=== PATIENT | female | born 1980 | race Caucasian/White ===

== ENCOUNTER 2016-12-26 11:33 | Emergency (ER) | payer BC, OTHER ==
[~2016-12-26] VITALS: Ht 170.2 cm; Wt 76.3 kg
[~2016-12-26 11:33] MED LIST: BUPR-83 PO; KLN5X PO; LAMO200T38 PO
[2016-12-26 11:37] VITALS: TEMP 36.7; Ht 170.2 cm; Wt 76.3 kg
[2016-12-26] MEDS ORDERED: ONDANSETRON INJ 2 MG/ML 2 ML VIAL IV STA (12:49)
[2016-12-26] MEDS ORDERED: SODIUM CHLORIDE 0.9% 1000ML 1,000 ML IV STA (12:49)
[2016-12-26] MEDS ORDERED: MoRPHine SULFATE 4 MG/ML 1 ML CARP\\VIAL IV STA (12:49)
[2016-12-26 13:17] LABS: BASO % 0.2 %; BASO ABS # 0.01 K/uL (0-0.2); COMPLETE YES; EOS % 0.5 %; HEMATOCRIT 42.9 % (37-47); LYMPH % 25.7 %; LYMPH ABS # 1.43 K/uL (1.2-3.4); MEAN CELL VOLUME 93.1 fL (80-100); MEAN CORPUSCULAR HGB CONC 33.3 g/dl (32-36); MEAN PLATELET VOLUME 10.4 fL (7.4-10.4); MONO % 5.2 %; NEUT % 68.4 %; PLATELET COUNT 208 K/uL (130-400); RED BLOOD COUNT 4.61 M/uL (4.2-5.4); WHITE BLOOD COUNT 5.57 K/uL (4.8-10.8)
[2016-12-26 13:21] LABS: URINE APPEARANCE CLEAR (CLEAR); URINE BILIRUBIN NEG (NEG); URINE COLOR YELLOW; URINE NITRITE NEG (NEG); URINE SPECIFIC GRAVITY 1.011 (1.000-1.030); UROBILINOGEN NEG (NEG)
[2016-12-26 13:29] LABS: MANUAL MICROSCOPIC REQUIRED? NO; REVIEW REQ? NO
[2016-12-26 13:36] LABS: ALT/SGPT 18 U/L (12-78); BLOOD UREA NITROGEN 12 mg/dl (7-18); BUN/CREATININE RATIO 12.9 (10-20); CARBON DIOXIDE 26 mmol/L (21-32); CHLORIDE 106 mmol/L (98-107); CREATININE 0.96 mg/dl (0.60-1.20); GLUCOSE 81 mg/dl (70-99); POTASSIUM 4.1 mmol/L (3.5-5.1); SODIUM 140 mmol/L (136-145)
[2016-12-26 13:39] LABS: ALKALINE PHOSPHATASE 55 U/L (45-117); AST/SGOT 13 U/L (15-37)
[2016-12-26 13:49] LABS: PREG INTERNAL NEGATIVE QC NEG CLEAR BACKGROUND; PREG INTERNAL POSITIVE QC POS CONTROL LINE
[2016-12-26 13:54] LABS: CALCIUM 8.9 mg/dl (8.5-10.1)
[2016-12-26] MEDS ORDERED: SULF1TAB92 PO (14:42)
--- NOTE | 2016-12-26 14:46 | DIAGNOSTIC IMAGING REPORT ---
ABDOMEN AND PELVIS CT WITHOUT CONTRAST CT DOSE: 813.72 mGy.cm HISTORY: Flank pain EVALUATE FLANK PAIN/HEMATURIA TECHNIQUE: Multiaxial CT images of the abdomen and pelvis were performed without the use of intravenous and oral contrast according to the standard department stone protocol. COMPARISON STUDY: None. FINDINGS: Lung bases are clear. Liver spleen and pancreas are unremarkable. Right kidney is negative for hydronephrosis. Left kidney shows several nonobstructing mid and lower pole calcifications. These measure up to and include 3.5 mm. No evidence for an obstructing urinary tract calculus. Bladder is midline. There are no contained calcifications. There is considerable increase in fecal load throughout the colon consistent with fecal stasis. IMPRESSION: 1. Several nonobstructing left renal calcifications. 2. No evidence for an obstructing urinary tract calculus. 3. Considerable increase in fecal load throughout the colon consistent with fecal stasis. Electronically signed by: Remigio Penn M.D. 12/26/2016 2:45 PM Dictated Date/Time: 12/26/2016 2:39 PM
[2016-12-26] MEDS ORDERED: PHEN-876 PO (15:20)
[2016-12-26 15:33] VITALS: BP 138/71; PULSE 71; O2SAT 95
--- NOTE | 2016-12-27 12:31 | EMERGENCY ROOM VISIT NOTE ---
ED Visit Note First contact with patient: 12:37 Chief Complaint: Kidney pain and increased urinary frequency. History of Present Illness: Ms. Dominguez is a 36-year-old white female who ambulates into the ED complaining of left flank pain, increased urinary frequency and urinary burning. Historically patient reports a history of many urinary tract infections and kidney stones; her last kidney stone approximate 6 months ago required surgical intervention for extraction. Additionally she reports approximately 8 days ago she was seen at an urgent care center and was diagnosed with urinary tract infection for urinary burning and increased urinary frequency. She was prescribed Bactrim and has been taking her medications as prescribed. Patient goes on to report that over the last 7 days she has been having left flank pain. Her pain is radiating around the abdomen and into the left lower quadrant/pelvis; historically she reported in October she had a full got logical examination that was reported as normal. The pain has been constant but waxes and wanes in intensity. She describes her pain as a sharp discomfort. She currently rates her discomfort 7/10 but does report it has been as high as 10/ 10 and is low as 4/10. She has not identified any aggravating or alleviating factors related to this pain. She has been taken antibiotics as prescribed but no pain medications. Associated with her pain she reports she has been having chills but has had no paulino fevers, she has been nauseated and dry heaving, she has had a decreased appetite, continues to have increased urinary frequency and today for the first time she reports she's been having urinary burning, she also reports she has sensations of incomplete voiding. Additionally patient reports she has a history of migraine headaches and that her migraine headaches are increasing in frequency. She has not followed up with a new PCP in the area but reports her previous PCP did not have her on any medications for her headaches. These are her normal headaches and not the worst headache of her life. She denies any neurological symptoms. She has been using [id number] ibuprofen mostly and has had moderate relief of her discomfort. She denies sweats, skin eruptions, skin color changes, lightheadedness, dizziness, or respiratory tract symptoms, cough, wheezing, shortness of breath, chest pain, palpitations, upper abdominal pain, diarrhea, constipation, rectal bleeding, black/tarry stools, vaginal bleeding, vaginal discharge. Review of Systems: As noted above in history of present illness. All body systems were reviewed and found to be negative as noted above. Past Medical History: As previously noted, bronchitis, bowel obstruction, status post tonsillectomy, adenoidectomy, removal of left kidney cyst, D&C and wisdom teeth extraction. Current Medications: Bactrim, Wellbutrin, clonazepam, Lamictal. Allergies to Medications: Ceftin, Cipro, amoxicillin, doxycycline, Percocet, Imitrex, Elavil, fentanyl. Social History: Patient is currently employed; she feels safe in her home environment; she denies tobacco and alcohol use area Physical Examination: Vital Signs: Date Time Temp Pulse Resp B/P (MAP) Pulse Ox O2 Delivery O2 Flow Rate FiO2 12/26/16 15:33 71 18 138/71 95 12/26/16 13:11 77 14 129/76 100 Room Air 12/26/16 11:37 36.7 86 16 123/80 99 Room Air GENERAL: 36-year-old female in mild to moderate distress due to pain, nontoxic- appearing, afebrile and hemodynamically stable. NEUROLOGICAL: Awake, alert and oriented to person, place and time. Answering questions appropriately and following commands. Normal gait. Good hand eye coordination. No focal motor sensory deficits. Cranial nerves II through XII grossly intact. Good short-term and long-term recall. SKIN: Warm, dry and pink. No soft tissue eruptions or trauma noted. HEENT: Atraumatic and normocephalic. PERRLA. Sclera white and conjunctiva pink. No drainage from naris. Oral cavity moist and pink. Pharynx is nonerythematous or edematous. Speech normal. No lymphadenopathy. Trachea midline. No jugular venous distention. BACK: No tenderness over the bony spine. Mild left-sided CVA tenderness. THORAX: Lungs sounds are clear to auscultation and equal bilaterally with symmetrical chest wall. No wheezing, rales or rhonchi. No crepitus, tenderness , subcutaneous air or deformities noted. HEART: Regular rate and rhythm. No gallops, rubs or murmurs are appreciated. ABDOMEN: Flat and soft with mild tenderness in the left lower quadrant and pelvis area. Positive bowel sounds in all quadrants. No guarding, rigidity or organomegaly. EXTREMITIES: Moves all extremities well on command and with purpose. All distal neurovascular statuses are intact and equal bilaterally. No calf tenderness or cords. ED Course: Patient is assessed as noted above. Patient's medication list was reviewed. Laboratory Testing: Test 12/26/16 11:45 12/26/16 13:08 Range/Units Urine Color YELLOW Urine Appearance CLEAR CLEAR Urine pH 6.0 4.5-7.5 Urine Specific [place] 1.011 1.000-1.030 Urine Protein NEG NEG Urine Glucose (UA) NEG NEG Urine Ketones NEG NEG Urine Occult Blood NEG NEG Urine Nitrite NEG NEG Urine Bilirubin NEG NEG Urine Urobilinogen NEG NEG Urine Leukocyte Esterase NEG NEG White Blood Count 5.57 4.8-10.8 K/uL Red Blood Count 4.61 4.2-5.4 M/uL Hemoglobin 14.3 12.0-16.0 g/dL Hematocrit 42.9 37-47 % Mean Corpuscular Volume 93.1 80-100 fL Mean Corpuscular Hemoglobin 31.0 25-34 pg Mean Corpuscular Hemoglobin Concent 33.3 32-36 g/dl Platelet Count 208 130-400 K/uL Mean Platelet Volume 10.4 7.4-10.4 fL Neutrophils (%) (Auto) 68.4 % Lymphocytes (%) (Auto) 25.7 % Monocytes (%) (Auto) 5.2 % Eosinophils (%) (Auto) 0.5 % Basophils (%) (Auto) 0.2 % Neutrophils # (Auto) 3.81 1.4-6.5 K/uL Lymphocytes # (Auto) 1.43 1.2-3.4 K/uL Monocytes # (Auto) 0.29 0.11-0.59 K/uL Eosinophils # (Auto) 0.03 0-0.5 K/uL Basophils # (Auto) 0.01 0-0.2 K/uL RDW Standard Deviation 40.8 36.4-46.3 fL RDW Coefficient of Variation 12.0 11.5-14.5 % Immature Granulocyte % (Auto) 0.0 % Immature Granulocyte # (Auto) 0.00 0.00-0.02 K/uL Sodium Level 140 136-145 mmol/L Potassium Level 4.1 3.5-5.1 mmol/L Chloride Level 106 98-107 mmol/L Carbon Dioxide Level 26 21-32 mmol/L Anion Gap 8.0 3-11 mmol/L Blood Urea Nitrogen 12 7-18 mg/dl Creatinine 0.96 0.60-1.20 mg/dl Est Creatinine Clear Calc Drug Dose 86.3 ml/min Estimated GFR () 88.2 Estimated GFR (Non- 76.1 BUN/Creatinine Ratio 12.9 10-20 Random Glucose 81 70-99 mg/dl Calcium Level 8.9 8.5-10.1 mg/dl Total Bilirubin 0.3 0.2-1 mg/dl Direct Bilirubin < 0.1 0-0.2 mg/dl Aspartate Amino Transf (AST/SGOT) 13 15-37 U/L Alanine Aminotransferase (ALT/SGPT) 18 12-78 U/L Alkaline Phosphatase 55 45-117 U/L Total Protein 7.3 6.4-8.2 gm/dl Albumin 3.9 3.4-5.0 gm/dl Lipase 243 73-393 U/L Human Chorionic Gonadotropin, Qual NEG NEG Noncontrast Abdominal/Pelvic CT: Was reviewed by myself and read by the radiologist and shows liver bases are clear, liver, spleen and pancreas are unremarkable, right kidney is negative for Noa gross is, left kidney shows several nonobstructing mid and lower pole calcifications. No evidence of a struck in ureter calculus, bladder midline, no calcifications within the bladder , increased fecal load throughout the colon consistent with fecal stasis. Patient was hydrated with normal saline and received 4 mg of morphine IV for pain and 4 mg of Zofran IV for nausea. Patient was reassessed multiple times during her stay in the emergency department. Patient's case was reviewed with Dr. Wilson; we agreed on diagnostic approach , treatment, disposition and plan. Patient was educated about today's findings and instructed on her treatment plan ; she verbalizes understanding and agreement with this plan. Clinical Impression: Left flank pain. Urinary symptoms. Increased fecal load. Decision-Making: She'll my differential diagnosis I considered musculoskeletal strain, kidney stone, pyelonephritis, hydronephrosis, pancreatitis and other causes. Disposition: Patient discharged home in stable condition; prior to departure she was reassessed and subjectively reported she was feeling better. She reported a slight decrease in pain and resolution of nausea. Plan: Patient was encouraged to alternate ibuprofen and acetaminophen every 3 hours or use once every 6 hours as needed for pain. Patient was prescribed Pyridium 200 mg 3 times a day for 2 days for urinary symptoms. Patient was encouraged use of counter Colace 2 times a day and MiraLAX 1 time a day. Patient was encouraged to stay well-hydrated with increased clear fluids and to increase her diet with fruits, vegetables and fiber. Patient was encouraged to follow-up with Dr. Noa Potts of urology and Dr. Kelby Cheng of gastroenterology. Patient was encouraged return the ED for worsening/uncontrolled pains, fevers, vomiting, bloody urine, bloody stools, worsening headaches or any abnormal neurological symptoms.
== END 2016-12-26 15:45 | disposition home or self-care (01) ==
LOC: C.EDB 11:34 → C.EDC 15:45
DX: R10.9 Unspecified abdominal pain (principal); R30.0 Dysuria; R35.0 Frequency of micturition; K56.41 Fecal impaction; Z79.899 Other long term (current) drug therapy

== ENCOUNTER 2017-04-23 13:50 | Emergency (ER) | payer BC ==
[~2017-04-23] VITALS: Ht 170.2 cm; Wt 78.1 kg
[~2017-04-23 13:50] MED LIST changes: +SULF1TAB92 PO
[2017-04-23 14:02] VITALS: TEMP 37; Ht 170.2 cm; Wt 78.1 kg
[2017-04-23] MEDS ORDERED: ONDANSETRON INJ 2 MG/ML 2 ML VIAL IV STA (14:32)
[2017-04-23] MEDS ORDERED: SODIUM CHLORIDE 0.9% 1000ML 1,000 ML IV STA (14:32)
[2017-04-23] MEDS ORDERED: ACETAMINOPHEN IV 100 ML IV STA (14:32)
[2017-04-23] MEDS ORDERED: BUPR-79 PO (14:47)
[2017-04-23] MEDS ORDERED: MISCCAP80 PO (14:47)
[2017-04-23] MEDS ORDERED: CRAN1TAB9 PO (14:47)
[2017-04-23] MEDS ORDERED: CLON1TAB3 PO (14:49)
[2017-04-23 15:03] LABS: BASO % 0.4 %; BASO ABS # 0.02 K/uL (0-0.2); COMPLETE YES; HEMATOCRIT 40.6 % (37-47); LYMPH % 33.8 %; LYMPH ABS # 1.73 K/uL (1.2-3.4); MEAN CELL VOLUME 95.1 fL (80-100); MEAN CORPUSCULAR HEMOGLOBIN 31.9 pg (25-34); MEAN CORPUSCULAR HGB CONC 33.5 g/dl (32-36); NEUT % 57.8 %; PLATELET COUNT 205 K/uL (130-400); RED BLOOD COUNT 4.27 M/uL (4.2-5.4); WHITE BLOOD COUNT 5.12 K/uL (4.8-10.8)
[2017-04-23 15:06] LABS: URINE APPEARANCE CLOUDY (CLEAR); URINE BILIRUBIN NEG (NEG); URINE COLOR YELLOW; URINE EPITHELIAL CELL AUTO >30 /lpf (0-5); URINE NITRITE NEG (NEG); UROBILINOGEN NEG (NEG); ZZUR CULT IF INDIC CLEAN CATCH YES
--- NOTE | 2017-04-23 15:09 | EMERGENCY ROOM VISIT NOTE ---
History First contact with patient: 14:16 Chief Complaint: CONSTIPATION Stated Complaint: SEVERE PAIN, CONSTIPATION, NAUSEA Nursing Triage Summary: Patient states "I have severe abdominal pain x 1 week. I can't go in the bathroom x 2 days. I tried enemas but I still can't go. I am nauseated." History of Present Illness The patient is a 36 year old female who presents to the Emergency Room with complaints of constipation and abdominal bloating for the past week. Patient reports a history of chronic constipation, she usually manages this with diet, MiraLAX, and the occasional enema. She states that she tried an enema yesterday , however this was unsuccessful. She does admit that she is supposed to take the Miralax every day, but she has not been taking it for a while, because she feels that it does not help and takes too long to work. She states that she has been having some intermittent nausea but has still been eating normally and not vomiting. She states the abdominal bloating and pain have been getting worse and she has the sensation that she needs to move her bowels, but when she tries she is unable to go. She denies fever/chills, chest pain, shortness of breath, rectal bleeding, urinary symptoms. Review of Systems A complete 10 point review of systems was reviewed with the patient with pertinent positives and negatives as per history of present illness. All else were negative. Past Medical/Surgical History Medical Problems: (1) HTN (hypertension) (2) Hypokalemia (3) Psychiatric illness Social History Smoking Status: Current Every Day Smoker Marital Status: Occupation Status: employed Current/Historical Medications Scheduled Bupropion (Wellbutrin Sr), 300 MG PO DAILY Clonazepam (Klonopin), 1 MG PO BID Cranberry (Vaccinium Macrocarp (Cranberry), 2 CAP PO DAILY Lamotrigine (Lamictal), 200 MG PO BID Probiotic Product (Probiotic), 1 CAP PO DAILY Sulfa/Trimethoprim (Bactrim Ds 800MG/160MG), 1 TAB PO BID Allergies Review in chart Physical Exam Vital Signs Date Time Temp Pulse Resp B/P (MAP) Pulse Ox O2 Delivery O2 Flow Rate FiO2 04/23/17 19:25 75 18 104/81 99 04/23/17 18:08 73 15 100/59 100 Room Air 04/23/17 15:52 75 98/70 100 Room Air 04/23/17 15:17 63 14 98/70 100 Room Air 04/23/17 15:11 78 04/23/17 14:02 37.0 83 18 126/79 100 Room Air Physical Exam CONSTITUTIONAL: No acute distress. Well appearing and well nourished. Alert and oriented X 4 with normal affect. HEENT: Normocephalic, atraumatic. Pupils equal, round and reactive to light, EOMI. TMs normal. Pharynx normal. NECK: Supple, full active range of motion without discomfort. RESPIRATORY: Clear to auscultation bilaterally with no wheezing, crackles, rhonchi or stridor. Equal expansion bilaterally. CARDIOVASCULAR: Regular rate and rhythm with no murmurs, rubs or gallops. Normal peripheral perfusion. No edema. GASTROINTESTINAL: Mildly tender throughout, no rebound tenderness, no guarding. The abdomen is soft and nondistended. Active bowel sounds in all 4 quadrants. No CVA tenderness. MUSCULOSKELETAL: Full range of motion of all joints without discomfort. INTEGUMENTARY: No rash or other significant dermatologic conditions noted. NEUROLOGIC: Cranial nerves II-XII grossly intact. No focal neurologic deficits noted. Medical Decision & Procedures ER Provider Diagnostic Interpretation: PA CHEST RADIOGRAPH AND UPRIGHT AND SUPINE AP RADIOGRAPHS OF THE ABDOMEN CLINICAL HISTORY: eval fecal burden, SBO, free air COMPARISON STUDY: Chest radiograph October 29, [address] of the abdomen and pelvis 12/26/2016. FINDINGS: Lung volumes are normal. Lungs are clear. No pneumothorax or pleural effusion is present. Cardiac size is normal. Mediastinal contours are normal. There is no free air. Pelvic calcifications likely reflect phleboliths. There are several bilateral renal calculi. There is a large amount of stool within the colon. There is no evidence for a bowel obstruction. IMPRESSION: 1. No free air or evidence of bowel obstruction. 2. Large amount of stool within the colon. 3. Bilateral nephrolithiasis. 4. No acute cardiopulmonary findings. Laboratory Results 04/23/17 14:50 Red Blood Count 4.27, Mean Corpuscular Volume 95.1, Mean Corpuscular Hemoglobin 31.9, Mean Corpuscular Hemoglobin Concent 33.5, Mean Platelet Volume 10.0, Neutrophils (%) (Auto) 57.8, Lymphocytes (%) (Auto) 33.8, Monocytes (%) (Auto) 7.0, Eosinophils (%) (Auto) 1.0, Basophils (%) (Auto) 0.4, Neutrophils # (Auto) 2.96, Lymphocytes # (Auto) 1.73, Monocytes # (Auto) 0.36, Eosinophils # (Auto) 0.05, Basophils # (Auto) 0.02 04/23/17 14:50 Test 04/23/17 14:45 04/23/17 14:50 Urine Color YELLOW Urine Appearance CLOUDY (CLEAR) Urine pH 6.0 (4.5-7.5) Urine Specific [place] 1.010 (1.000-1.030) Urine Protein NEG (NEG) Urine Glucose (UA) NEG (NEG) Urine Ketones NEG (NEG) Urine Occult Blood NEG (NEG) Urine Nitrite NEG (NEG) Urine Bilirubin NEG (NEG) Urine Urobilinogen NEG (NEG) Urine Leukocyte Esterase MODERATE (NEG) Urine WBC (Auto) 10-30 /hpf (0-5) Urine RBC (Auto) 0-4 /hpf (0-4) Urine Hyaline Casts (Auto) 0 /lpf (0-5) Urine Epithelial Cells (Auto) >30 /lpf (0-5) Urine Bacteria (Auto) 1+ (NEG) Urine Test NEG (NEG) White Blood Count 5.12 K/uL (4.8-10.8) Red Blood Count 4.27 M/uL (4.2-5.4) Hemoglobin 13.6 g/dL (12.0-16.0) Hematocrit 40.6 % (37-47) Mean Corpuscular Volume 95.1 fL (80-100) Mean Corpuscular Hemoglobin 31.9 pg (25-34) Mean Corpuscular Hemoglobin Concent 33.5 g/dl (32-36) Platelet Count 205 K/uL (130-400) Mean Platelet Volume 10.0 fL (7.4-10.4) Neutrophils (%) (Auto) 57.8 % Lymphocytes (%) (Auto) 33.8 % Monocytes (%) (Auto) 7.0 % Eosinophils (%) (Auto) 1.0 % Basophils (%) (Auto) 0.4 % Neutrophils # (Auto) 2.96 K/uL (1.4-6.5) Lymphocytes # (Auto) 1.73 K/uL (1.2-3.4) Monocytes # (Auto) 0.36 K/uL (0.11-0.59) Eosinophils # (Auto) 0.05 K/uL (0-0.5) Basophils # (Auto) 0.02 K/uL (0-0.2) RDW Standard Deviation 42.4 fL (36.4-46.3) RDW Coefficient of Variation 12.4 % (11.5-14.5) Immature Granulocyte % (Auto) 0.0 % Immature Granulocyte # (Auto) 0.00 K/uL (0.00-0.02) Anion Gap 7.0 mmol/L (3-11) Est Creatinine Clear Calc Drug Dose 108.8 ml/min Estimated GFR () 115.1 Estimated GFR (Non- 99.3 BUN/Creatinine Ratio 14.7 (10-20) Calcium Level 8.9 mg/dl (8.5-10.1) Total Bilirubin 0.3 mg/dl (0.2-1) Direct Bilirubin < 0.1 mg/dl (0-0.2) Aspartate Amino Transf (AST/SGOT) 11 U/L (15-37) Alanine Aminotransferase (ALT/SGPT) 15 U/L (12-78) Alkaline Phosphatase 58 U/L (45-117) Total Protein 7.0 gm/dl (6.4-8.2) Albumin 3.8 gm/dl (3.4-5.0) Lipase 263 U/L (73-393) Medications Administered Medications (Trade) Dose Ordered Sig/Lamar Route Start Time Stop Time Status Last Admin Dose Admin Sodium Chloride 1,000 ml @ 999 mls/hr Q1H1M STAT IV 04/23/17 14:32 04/23/17 15:32 DC 04/23/17 14:51 999 MLS/HR Ondansetron HCl (Zofran Inj) 4 mg NOW STAT IV 04/23/17 14:32 04/23/17 14:36 DC 04/23/17 14:51 4 MG Acetaminophen 100 ml @ 400 mls/hr NOW STAT IV 04/23/17 14:32 04/23/17 14:46 DC 04/23/17 15:07 400 MLS/HR Sodium Biphosphate/ Sodium Phosphate (Fleet Enema) 132 ml NOW STAT NH 04/23/17 17:04 04/23/17 17:14 DC 04/23/17 17:39 132 ML Medical Decision CC: Patient presenting with complaint of constipation and abdominal pain/ bloating Interpretation of Labs: No leukocytosis, no anemia, no significant joint abnormalities, normal renal function, normal liver enzymes and lipase. UA consistent with UTI. Differential Diagnosis: Includes, but not limited to constipation, obstipation, small bowel obstruction, bowel perforation, among others. Medication Reconciliation: I attest that I have personally reviewed the patient' s current medication list. Vital signs review: I reviewed the patient's vital signs and interpret them as follows: T: Afebrile; BP: Normotensive; HR: Within normal limits; RR: Within normal limits; Pulse Ox: Within normal limits on room air. Blood pressure screening: The patient was found to have normal blood pressure on screening and does not require follow-up for repeat blood pressure check. Summary: Patient was evaluated at bedside, history of physical exam performed. Patient is alert and oriented, in no acute distress resting comfortably in the stretcher. She complains of diffuse discomfort of the abdomen, no significant tenderness or guarding, active bowel sounds in all 4 quadrants. Orders were placed at bedside for labs, UA, IV fluids for hydration, acute abdominal series to evaluate for constipation versus obstruction. Patient discussed with Dr. Rios, who agrees with my assessment and plan. Labs reviewed as above, no acute abnormalities. UA shows UTI, culture pending. Acute abdominal series shows a large amount of stool in the colon with no free air or signs of obstruction. Patient was offered an enema in the ED, she agrees to this and this was given. She did have a bowel movement following the enema and states that her symptoms are improved. Patient updated on all results and plan for discharge. She was specifically instructed on a bowel regimen with MiraLAX to continue managing her constipation. She was also given referral for a trade show manager to follow up. She was instructed on return precautions should her symptoms worsen, she verbalized understanding. She was discharged home in stable condition and ambulatory. Impression Primary Impression: Constipation Additional Impression: UTI (urinary tract infection) Departure Information Dispostion Home / Self-Care Condition GOOD Prescriptions Sulfa/Trimethoprim (Bactrim Ds 800MG/160MG) Tab 1 TAB PO BID for 3 Days, #6 TAB Prov: Breanna Raya CRNP 04/23/17 Referrals Cee Gonzalez D.O. (PCP) Caryn Adam, DO Patient Instructions ED Constipation, ED UTI Cystitis Female, My [facility] Additional Instructions You have been treated in the Emergency Department your Abdominal Pain. Laboratory results and imaging studies have ruled out any emergent causes for your abdominal pain which would warrant admission or surgery. You have been diagnosed today with constipation and a urinary tract infection ( UTI). You have been prescribed Bactrim to be taken twice a day for 3 days. This is an antibiotic. All antibiotics have the potential to cause diarrhea. Stop this medication and contact a medical provider if you were to develop any significant adverse side effects including: wheezing, shortness of breath, passing out, vomiting, or a diffuse rash. Always take antibiotics as directed and COMPLETE the ENTIRE course regardless of the improvement of your symptoms. For constipation: - Take Miralax one cap full 2-3 times a day until you are moving your bowels every day with a thick applesauce consistency. After that, back off to 1 capful daily to maintain normal bowel movements. It may take several days for this to work, keep taking the medicine. - Drink plenty of water to stay well hydrated. - Follow up with a trade show manager for ongoing management of your chronic constipation. Call for an appointment. As with any trip to the Emergency Department, you should follow-up with your Primary Care Provider in the next few days. Return to the emergency department for worsening symptoms, including severe worsening abdominal pain, persistent nausea or vomiting, fever/chills, blood in your stool or urine, or any other concerns. Work Instructions Return To Work: 1 day Problem Qualifiers Primary Impression: Constipation Constipation type: unspecified constipation type Qualified Codes: K59.00 - Constipation, unspecified Additional Impression: UTI (urinary tract infection) Urinary tract infection type: acute cystitis Hematuria presence: without hematuria Qualified Codes: N30.00 - Acute cystitis without hematuria
[2017-04-23 15:10] LABS: MANUAL MICROSCOPIC REQUIRED? NO; REVIEW REQ? NO
[2017-04-23 15:23] LABS: ALT/SGPT 15 U/L (12-78); BLOOD UREA NITROGEN 11 mg/dl (7-18); BUN/CREATININE RATIO 14.7 (10-20); CALCIUM 8.9 mg/dl (8.5-10.1); CARBON DIOXIDE 29 mmol/L (21-32); CHLORIDE 105 mmol/L (98-107); CREATININE 0.77 mg/dl (0.60-1.20); GLUCOSE 79 mg/dl (70-99); POTASSIUM 3.6 mmol/L (3.5-5.1); SODIUM 141 mmol/L (136-145)
[2017-04-23 15:26] LABS: ALKALINE PHOSPHATASE 58 U/L (45-117); AST/SGOT 11 U/L (15-37)
--- NOTE | 2017-04-23 15:51 | DIAGNOSTIC IMAGING REPORT ---
PA CHEST RADIOGRAPH AND UPRIGHT AND SUPINE AP RADIOGRAPHS OF THE ABDOMEN CLINICAL HISTORY: eval fecal burden, SBO, free air COMPARISON STUDY: Chest radiograph October 29, [address] of the abdomen and pelvis 12/26/2016. FINDINGS: Lung volumes are normal. Lungs are clear. No pneumothorax or pleural effusion is present. Cardiac size is normal. Mediastinal contours are normal. There is no free air. Pelvic calcifications likely reflect phleboliths. There are several bilateral renal calculi. There is a large amount of stool within the colon. There is no evidence for a bowel obstruction. IMPRESSION: 1. No free air or evidence of bowel obstruction. 2. Large amount of stool within the colon. 3. Bilateral nephrolithiasis. 4. No acute cardiopulmonary findings. Electronically signed by: Marck More M.D. 04/23/2017 3:50 PM Dictated Date/Time: 04/23/2017 3:48 PM
[2017-04-23] MEDS ORDERED: SOD PHOSPHATE/SOD BIPHOSPHATE ENEMA 132 ML BTL PR STA (17:04)
[2017-04-23] MEDS ORDERED: SULF800T23 PO (18:13)
[2017-04-23 19:25] VITALS: BP 104/81; PULSE 75; O2SAT 99
== END 2017-04-23 19:27 | disposition home or self-care (01) ==
LOC: C.EDB 13:51 → C.EDC 19:27
DX: K59.00 Constipation, unspecified (principal); N39.0 Urinary tract infection, site not specified; I10 Essential (primary) hypertension; F17.200 Nicotine dependence, unspecified, uncomplicated; Z79.899 Other long term (current) drug therapy

== ENCOUNTER 2017-04-26 19:42 | Emergency (ER) | payer BC ==
[~2017-04-26] VITALS: Ht 170.2 cm; Wt 78.1 kg
[~2017-04-26 19:42] MED LIST changes: +BUPR-79 PO; -BUPR-83 PO; +CLON1TAB3 PO; +CRAN1TAB9 PO; -KLN5X PO; +MISCCAP80 PO; -SULF1TAB92 PO; +SULF800T23 PO
[2017-04-26 19:48] VITALS: TEMP 37.1; Ht 170.2 cm; Wt 78.1 kg
[2017-04-26] MEDS ORDERED: SODIUM CHLORIDE 0.9% 1000ML 1,000 ML IV STA (20:29)
[2017-04-26] MEDS ORDERED: ONDANSETRON INJ 2 MG/ML 2 ML VIAL IV STA (20:29)
[2017-04-26 20:48] LABS: BASO % 0.1 %; BASO ABS # 0.01 K/uL (0-0.2); COMPLETE YES; EOS % 0.7 %; HEMATOCRIT 42.5 % (37-47); IG% 0.1 %; LYMPH % 33.8 %; LYMPH ABS # 2.26 K/uL (1.2-3.4); MEAN CELL VOLUME 94.4 fL (80-100); MEAN CORPUSCULAR HEMOGLOBIN 32.4 pg (25-34); MEAN CORPUSCULAR HGB CONC 34.4 g/dl (32-36); MEAN PLATELET VOLUME 9.9 fL (7.4-10.4); MONO % 7.2 %; NEUT % 58.1 %; PLATELET COUNT 220 K/uL (130-400); WHITE BLOOD COUNT 6.68 K/uL (4.8-10.8)
[2017-04-26 21:05] LABS: BUN/CREATININE RATIO 13.2 (10-20); CALCIUM 9.5 mg/dl (8.5-10.1); CREATININE 0.92 mg/dl (0.60-1.20); POTASSIUM 3.7 mmol/L (3.5-5.1)
[2017-04-26 21:08] LABS: URINE APPEARANCE CLEAR (CLEAR); URINE BILIRUBIN NEG (NEG); URINE COLOR YELLOW; URINE EPITHELIAL CELL AUTO >30 /lpf (0-5); URINE NITRITE NEG (NEG); URINE SPECIFIC GRAVITY 1.017 (1.000-1.030); UROBILINOGEN NEG (NEG)
[2017-04-26 21:08] LABS: ALB/GLOB RATIO 1.2 (0.9-2)
[2017-04-26 21:09] LABS: MANUAL MICROSCOPIC REQUIRED? NO; REVIEW REQ? NO
--- NOTE | 2017-04-26 21:44 | DIAGNOSTIC IMAGING REPORT ---
CT SCAN OF THE ABDOMEN AND PELVIS WITH IV CONTRAST CLINICAL HISTORY: Generalized abdominal pain. COMPARISON STUDY: Abdominal CT dated 12/26/2016. TECHNIQUE: Following the IV administration of 115 cc of Optiray 320, CT scan of the abdomen and pelvis is performed from the lung bases to the proximal femora. Images are reviewed in the axial, sagittal, and coronal planes. IV contrast was administered without complication. A dose lowering technique was utilized adhering to the principles of ALARA. CT DOSE: 438.70 mGy.cm FINDINGS: Lung bases: The heart is normal in size and without pericardial effusion. The lung bases are clear. Liver: The contrast-enhanced liver is normal in size, contour, and attenuation. There is no intrahepatic biliary ductal dilatation. The hepatic veins and portal veins are patent. Gallbladder: Unremarkable. Spleen: Normal in size and attenuation. Pancreas: Unremarkable. Adrenal glands: Unremarkable. Kidneys: The contrast enhanced kidneys are normal in size and without hydronephrosis. The kidneys enhance symmetrically. Cortical scarring is noted in the upper pole of the left kidney. Subcentimeter cortical hypodensities in both kidneys likely represent cysts but are too small for definitive characterization. There are least 4 nonobstructing left renal calculi measuring up to 4 mm. Abdominal vasculature: The abdominal aorta is normal in course and caliber. Bowel: There is moderate to severe constipation. No bowel obstruction is identified. The appendix is not identified and reported surgically absent. Peritoneum: There is no intraperitoneal free air or abdominal ascites. There is a small fat-containing umbilical hernia. Lymphadenopathy: None. Pelvic viscera: The bladder, uterus, and adnexa are normal as visualized. There is a small volume of free fluid in the cul-de-sac. Ovarian follicles are noted bilaterally. An involuting follicle is seen in the right ovary. Skeletal structures: No lytic or blastic lesions are seen. There are bilateral pars defects at L5 without anterolisthesis at L5-S1. Disc space narrowing is seen at L4-L5 and L5-S1. IMPRESSION: 1. There are no acute infectious or inflammatory findings in the abdomen or pelvis. 2. There is a small volume of free fluid in the cul-de-sac, likely within physiologic limits. 3. Moderate to severe constipation. No bowel obstruction is seen. 4. Nonobstructing left renal calculi. 5. Additional findings as above. Electronically signed by: Kristian Dunbar M.D. 04/26/2017 9:43 PM Dictated Date/Time: 04/26/2017 9:38 PM
[2017-04-26] MEDS ORDERED: LACTULOSE SYRUP 20 GM/30 ML UDC PO STA (21:59)
--- NOTE | 2017-04-26 22:53 | EMERGENCY ROOM VISIT NOTE ---
History First contact with patient: 20:04 Chief Complaint: ABDOMINAL PAIN Stated Complaint: UTI,CONSTIPATION,STOMACH PAIN Nursing Triage Summary: Pt. reports that she was seen here on Monday and diagnosed with a UTI and constipation. States she does not feel any better so she called her PCP, but couldn't get an appt. and went to [facility]. She was told there that she still has a UTI and was sent here for further testing. Pt. states she has not had a bowel movement in over a week despite taking miralax and drinking tea. Pt. states "I'm dying. This is worse than labor. I know, because I have two kids." History of Present Illness Patient is a 36-year-old white female who returns to the emergency department for continued abdominal pain and constipation. She was seen and evaluated here 3 days ago for the same complaint. She has a history of chronic constipation. She is not presently followed by gastroenterology, states that she recently made an appointment and is scheduled to be seen on . She states that her constipation is typically managed by MiraLAX, but she had not been taking that regularly. She was seen and evaluated here 3 days ago. She had laboratory studies and an acute abdominal series. Urine was concerning for infection she was placed on 3 days of Bactrim. Urine culture ultimately was negative. She received a fleets enema, which did not produce a significant bowel movement. Patient continues to complain of abdominal bloating and pain. She has not been able to move her bowels. She does report she has the urge to move her bowels, she sits on the toilet, nothing happens. She has been taking 2 -3 capsules of MiraLAX daily, with fruit juice and herbal tea. She continues to note reports pain primarily on the left side of her abdomen, but it is diffuse across the entire abdomen. She feels very bloated and distended. She is nauseous but has not vomited. She does report a remote history of a bowel obstruction. She had a colonoscopy about 10 years ago. She was seen at the [facility] just prior to coming to the emergency department. A urinalysis at that time still showed "a bunch of white cells." The practitioner there was worried "about my kidneys." She also notes that she is urinating frequently, denies dysuria. She rates her abdominal pain an 8/10. Review of Systems Review of systems as per HPI. All other systems reviewed were negative. 10 systems reviewed. Past Medical/Surgical History Medical Problems: (1) Bipolar disorder (2) Constipation (3) HTN (hypertension) (4) Hypokalemia (5) Kidney stone (6) Left flank pain (7) Psychiatric illness (8) UTI (urinary tract infection) (9) Vertigo Surgical Problems: (1) History of appendectomy (2) History of kidney surgery (3) History of wisdom tooth extraction Electronic medical records are reviewed and summarized as above/below. See Problem List. Social History Smoking Status: Current Some Day Smoker Marital Status: Housing Status: lives with family Occupation Status: employed Current/Historical Medications Scheduled Bupropion (Wellbutrin Sr), 300 MG PO DAILY Clonazepam (Klonopin), 1 MG PO BID Cranberry (Vaccinium Macrocarp (Cranberry), 2 CAP PO DAILY Lamotrigine (Lamictal), 200 MG PO BID Probiotic Product (Probiotic), 1 CAP PO DAILY Sulfa/Trimethoprim (Bactrim Ds 800MG/160MG), 1 TAB PO BID Physical Exam Vital Signs Date Time Temp Pulse Resp B/P (MAP) Pulse Ox O2 Delivery O2 Flow Rate FiO2 04/26/17 21:40 78 15 110/65 97 Room Air 04/26/17 20:30 70 18 130/90 100 Room Air 04/26/17 20:28 69 04/26/17 20:22 76 25 133/85 100 Room Air 04/26/17 19:48 37.1 85 18 123/84 99 Room Air Physical Exam CONSTITUTIONAL: Patient is a well-appearing 36-year-old white female who is awake and alert and in moderate distress due to her stated complaint. EYES: Pupils equal, round, reactive to light and accommodation. EOMs intact without nystagmus. Sclera are anicteric. ENT: Tympanic membranes intact, with normal landmarks. External canals are clear. Oral and nasopharynx are clear. Mucous membranes are moist, no lesions , tongue and gums appear normal. CARDIOVASCULAR: Regular rate and rhythm, with normal S1 and S2, no murmur or gallop or rub is heard. No carotid bruits auscultated. No JVD. Peripheral pulses easily palpable. RESPIRATORY: Breath sounds equal and clear to auscultation without wheezes, rales, or rhonchi heard. Full and equal chest expansion without accessory muscle use or retractions. ABDOMEN: Bowel sounds are present. Well-healed surgical scars are noted. Abdomen is soft, nondistended, tympanic to percussion throughout. She is moderately tender to palpation in the left upper and left lower quadrants, without guarding, rebound or rigidity. RECTAL EXAM: No masses or fecal impaction noted, stool is brown and Hemoccult negative. INTEGUMENTARY: No lesions or rash, normal skin turgor. LYMPH: No lymphadenopathy. Medical Decision & Procedures ER Provider Diagnostic Interpretation: CT SCAN OF THE ABDOMEN AND PELVIS WITH IV CONTRAST CLINICAL HISTORY: Generalized abdominal pain. COMPARISON STUDY: Abdominal CT dated 12/26/2016. TECHNIQUE: Following the IV administration of 115 cc of Optiray 320, CT scan of the abdomen and pelvis is performed from the lung bases to the proximal femora. Images are reviewed in the axial, sagittal, and coronal planes. IV contrast was administered without complication. A dose lowering technique was utilized adhering to the principles of ALARA. CT DOSE: 438.70 mGy.cm FINDINGS: Lung bases: The heart is normal in size and without pericardial effusion. The lung bases are clear. Liver: The contrast-enhanced liver is normal in size, contour, and attenuation. There is no intrahepatic biliary ductal dilatation. The hepatic veins and portal veins are patent. Gallbladder: Unremarkable. Spleen: Normal in size and attenuation. Pancreas: Unremarkable. Adrenal glands: Unremarkable. Kidneys: The contrast enhanced kidneys are normal in size and without hydronephrosis. The kidneys enhance symmetrically. Cortical scarring is noted in the upper pole of the left kidney. Subcentimeter cortical hypodensities in both kidneys likely represent cysts but are too small for definitive characterization. There are least 4 nonobstructing left renal calculi measuring up to 4 mm. Abdominal vasculature: The abdominal aorta is normal in course and caliber. Bowel: There is moderate to severe constipation. No bowel obstruction is identified. The appendix is not identified and reported surgically absent. Peritoneum: There is no intraperitoneal free air or abdominal ascites. There is a small fat-containing umbilical hernia. Lymphadenopathy: None. Pelvic viscera: The bladder, uterus, and adnexa are normal as visualized. There is a small volume of free fluid in the cul-de-sac. Ovarian follicles are noted bilaterally. An involuting follicle is seen in the right ovary. Skeletal structures: No lytic or blastic lesions are seen. There are bilateral pars defects at L5 without anterolisthesis at L5-S1. Disc space narrowing is seen at L4-L5 and L5-S1. IMPRESSION: 1. There are no acute infectious or inflammatory findings in the abdomen or pelvis. 2. There is a small volume of free fluid in the cul-de-sac, likely within physiologic limits. 3. Moderate to severe constipation. No bowel obstruction is seen. 4. Nonobstructing left renal calculi. Laboratory Results 04/26/17 20:30 Red Blood Count 4.50, Mean Corpuscular Volume 94.4, Mean Corpuscular Hemoglobin 32.4, Mean Corpuscular Hemoglobin Concent 34.4, Mean Platelet Volume 9.9, Neutrophils (%) (Auto) 58.1, Lymphocytes (%) (Auto) 33.8, Monocytes (%) (Auto) 7.2, Eosinophils (%) (Auto) 0.7, Basophils (%) (Auto) 0.1, Neutrophils # (Auto) 3.87, Lymphocytes # (Auto) 2.26, Monocytes # (Auto) 0.48, Eosinophils # (Auto) 0.05, Basophils # (Auto) 0.01 04/26/17 20:30 Test 04/26/17 20:30 04/26/17 20:44 White Blood Count 6.68 K/uL (4.8-10.8) Red Blood Count 4.50 M/uL (4.2-5.4) Hemoglobin 14.6 g/dL (12.0-16.0) Hematocrit 42.5 % (37-47) Mean Corpuscular Volume 94.4 fL (80-100) Mean Corpuscular Hemoglobin 32.4 pg (25-34) Mean Corpuscular Hemoglobin Concent 34.4 g/dl (32-36) Platelet Count 220 K/uL (130-400) Mean Platelet Volume 9.9 fL (7.4-10.4) Neutrophils (%) (Auto) 58.1 % Lymphocytes (%) (Auto) 33.8 % Monocytes (%) (Auto) 7.2 % Eosinophils (%) (Auto) 0.7 % Basophils (%) (Auto) 0.1 % Neutrophils # (Auto) 3.87 K/uL (1.4-6.5) Lymphocytes # (Auto) 2.26 K/uL (1.2-3.4) Monocytes # (Auto) 0.48 K/uL (0.11-0.59) Eosinophils # (Auto) 0.05 K/uL (0-0.5) Basophils # (Auto) 0.01 K/uL (0-0.2) RDW Standard Deviation 42.1 fL (36.4-46.3) RDW Coefficient of Variation 12.2 % (11.5-14.5) Immature Granulocyte % (Auto) 0.1 % Immature Granulocyte # (Auto) 0.01 K/uL (0.00-0.02) Anion Gap 6.0 mmol/L (3-11) Est Creatinine Clear Calc Drug Dose 91.0 ml/min Estimated GFR () 92.8 Estimated GFR (Non- 80.1 BUN/Creatinine Ratio 13.2 (10-20) Calcium Level 9.5 mg/dl (8.5-10.1) Total Bilirubin 0.4 mg/dl (0.2-1) Aspartate Amino Transf (AST/SGOT) 13 U/L (15-37) Alanine Aminotransferase (ALT/SGPT) 15 U/L (12-78) Alkaline Phosphatase 56 U/L (45-117) Total Protein 7.7 gm/dl (6.4-8.2) Albumin 4.2 gm/dl (3.4-5.0) Globulin 3.5 gm/dl (2.5-4.0) Albumin/Globulin Ratio 1.2 (0.9-2) Urine Color YELLOW Urine Appearance CLEAR (CLEAR) Urine pH 7.0 (4.5-7.5) Urine Specific [place] 1.017 (1.000-1.030) Urine Protein NEG (NEG) Urine Glucose (UA) NEG (NEG) Urine Ketones TRACE (NEG) Urine Occult Blood NEG (NEG) Urine Nitrite NEG (NEG) Urine Bilirubin NEG (NEG) Urine Urobilinogen NEG (NEG) Urine Leukocyte Esterase LARGE (NEG) Urine WBC (Auto) 5-10 /hpf (0-5) Urine RBC (Auto) 0-4 /hpf (0-4) Urine Hyaline Casts (Auto) 0 /lpf (0-5) Urine Epithelial Cells (Auto) >30 /lpf (0-5) Urine Bacteria (Auto) NEG (NEG) Medications Administered Medications (Trade) Dose Ordered Sig/Lamar Route Start Time Stop Time Status Last Admin Dose Admin Sodium Chloride 1,000 ml @ 250 mls/hr Q4H STAT IV 04/26/17 20:29 04/27/17 00:28 04/26/17 20:38 250 MLS/HR Ondansetron HCl (Zofran Inj) 4 mg NOW STAT IV 04/26/17 20:29 04/26/17 20:31 DC 04/26/17 20:38 4 MG Lactulose (Chronulac Syrup) 30 gm NOW STAT PO 04/26/17 21:59 04/26/17 22:00 DC 04/26/17 22:44 30 GM ED Course The patient was seen and assessed as above. Her old records, specifically her ED record from 3 days ago, was reviewed. Urine culture from that time was negative. Patient has completed 3 days of Bactrim therapy. IV lock was initiated. The patient was medicated with Zofran 4 mg IV for nausea. She was hydrated with normal saline solution. CBC with differential, CMP and urinalysis were ordered. Laboratory studies today are largely unremarkable, and unchanged from 2 days ago. White count is normal. She is not anemic. Electrolytes, renal functions and liver functions are all within normal limits. Urinalysis notes a contaminated sample with greater than 30 epithelial cells. She has a large amount of leuk esterase and only 5-10 WBCs, without any other indicators for infection. No nitrates, no blood, no bacteria. CT scan of the abdomen and pelvis with IV contrast was ordered given the patient 's persistent left-sided abdominal pain and constipation. Left-sided nephrolithiasis was noted. There is no evidence for hydronephrosis. There is moderate to severe constipation without evidence for bowel obstruction. No acute infectious or inflammatory findings were noted. The patient was made aware of the results of her ED workup. She would like to pursue more aggressive measures and was agreeable to an enema. She was given lactulose 30 g orally, and administered a soapsuds enema. Patient tolerated the enema well and had excellent results. She felt improved, and felt well enough to be discharged home on her bowel regimen. Differential diagnosis included constipation, fecal impaction, IBS, bowel obstruction, UTI, pyelonephritis, among others. Medical Decision See ED Course. Medication Reconcilliation Current Medication List: was personally reviewed by me Blood Pressure Screening Patient's blood pressure: Normal blood pressure Blood pressure disposition: Did not require urgent referral Impression Primary Impression: Constipation Departure Information Referrals Cee Gonzalez D.O. (PCP) Patient Instructions My [facility] Additional Instructions Continue MiraLAX as previously discussed. Acetaminophen(Tylenol) may be used for fever or pain. Use 1000mg every eight hours as needed. Avoid using more than 3000mg in a 24 hour period. This is available over the counter. Rest and drink plenty of fluids as tolerated. Slow sips of water or sports drinks are recommended instead of large amounts all at once. Continue current medications. Once your stomach is settled start with a clear liquid diet (jello, soup broth, etc.) and then advance as tolerated. You should avoid full, heavy meals for about 24 hrs from the time your symptoms resolved. Return to the ER immediately for worsening or persistent abdominal pain, vomiting, fevers, chest pains, difficulty breathing, black or bloody stools, worsening of your condition, or as needed. Follow up with your primary physician in 1-2 days for a recheck of your current condition. Follow-up with gastroenterology as you have scheduled.
[2017-04-26 23:34] VITALS: BP 118/76; PULSE 82; O2SAT 97
== END 2017-04-26 23:35 | disposition home or self-care (01) ==
LOC: C.EDB 19:44 → C.EDC 23:35
DX: K59.00 Constipation, unspecified (principal); R11.0 Nausea; R10.9 Unspecified abdominal pain; I10 Essential (primary) hypertension; F31.9 Bipolar disorder, unspecified; F17.200 Nicotine dependence, unspecified, uncomplicated; Z87.440 Personal history of urinary (tract) infections; Z87.442 Personal history of urinary calculi; Z98.890 Other specified postprocedural states; Z79.899 Other long term (current) drug therapy

== ENCOUNTER 2017-08-26 16:54 | Emergency (ER) | payer BC ==
[~2017-08-26] VITALS: Ht 170.2 cm; Wt 79.4 kg
[~2017-08-26 16:54] MED LIST changes: +AZITTAB PO; +LAMO200T35 PO; -LAMO200T38 PO; -SULF800T23 PO
[2017-08-26 17:01] VITALS: Ht 170.2 cm; Wt 79.4 kg
[2017-08-26] MEDS ORDERED: ACETAMINOPHEN 500 MG TAB PO STA (17:35)
[2017-08-26] MEDS ORDERED: ONDANSETRON INJ 2 MG/ML 2 ML VIAL IV STA (17:35)
[2017-08-26] MEDS ORDERED: KETOROLAC TROMETHAMINE 30 MG/ML VIAL IV STA (17:35)
[2017-08-26] MEDS ORDERED: VNTHFA/IN INH (17:40)
[2017-08-26] MEDS ORDERED: CYAN10005 PO (17:40)
[2017-08-26] MEDS ORDERED: BIOTCAP2 PO (17:40)
[2017-08-26] MEDS ORDERED: SODIUM CHLORIDE 0.9% 1000ML 1,000 ML IV ONE (17:45)
--- NOTE | 2017-08-26 17:50 | EMERGENCY ROOM VISIT NOTE ---
History First contact with patient: 17:21 Chief Complaint: SHORTNESS OF BREATH Stated Complaint: TROUBLE BREATHING,LIGHT HEADED,DIZZY History of Present Illness The patient is a 36 year old female who presents to the Emergency Room with complaints of flulike symptoms for approximately 10 days. The patient saw her primary care physician's office earlier this week. She was prescribed a Z-Sigifredo, albuterol and prednisone. She has been taking these medications with no relief. She thinks that the albuterol and steroids are making it worse. She describes a constant heaviness in her chest for the last several days. She also feels short of breath. Her temperature has been 99F. She has also been trying Tylenol and Motrin with no relief. She did not get a flu vaccine this year. Review of Systems 10 system review performed and negative unless noted in HPI or below Past Medical/Surgical History Medical Problems: (1) Bipolar disorder (2) Constipation (3) HTN (hypertension) (4) Hypokalemia (5) Kidney stone (6) Left flank pain (7) Psychiatric illness (8) UTI (urinary tract infection) (9) Vertigo Surgical Problems: (1) History of appendectomy (2) History of kidney surgery (3) History of wisdom tooth extraction Social History Smoking Status: Current Some Day Smoker Marital Status: Housing Status: lives with family Occupation Status: employed Current/Historical Medications Scheduled Albuterol Hfa (Ventolin Hfa), 2-4 PUFFS INH Q6H Azithromycin (Zithromax Z-Sigifredo), 1 PKT PO UD Biotin (Biotin 5000), 1 CAP PO DAILY Bupropion (Wellbutrin Sr), 300 MG PO DAILY Clonazepam (Klonopin), 1 MG PO BID Cyanocobalamin (Vitamin B-12), 1,000 MCG PO DAILY Lamotrigine (Lamictal), 200 MG PO BID Ondasetron Odt (Zofran Odt), 4 MG SL Q6H Probiotic Product (Probiotic), 1 CAP PO DAILY Physical Exam Vital Signs Date Time Temp Pulse Resp B/P (MAP) Pulse Ox O2 Delivery O2 Flow Rate FiO2 08/26/17 21:43 75 18 117/69 96 08/26/17 20:57 36.6 75 18 117/69 96 Room Air 08/26/17 18:45 76 08/26/17 18:39 85 16 125/72 99 Room Air 08/26/17 17:01 36.6 87 18 113/73 96 Room Air Physical Exam VITALS: Vitals are noted on the nurse's note and reviewed by myself. Vital signs stable. GENERAL: 36-year-old female, anxious in appearance, SKIN: The skin was without rashes, erythema, edema, or bruising. HEAD: Normocephalic atraumatic. EYES: Conjunctivae injected bilaterally. Extraocular movements intact. NOSE:. No sinus tenderness. MOUTH: Mucous membranes slightly dry. Tonsils are not enlarged. Pharynx without erythema or exudate. Uvula midline. Airway patent. Tongue does not deviate. NECK: Supple without nuchal rigidity. Lymphadenopathy noted posterior cervical chain bilaterally. Cervical spine is nontender. No JVD. HEART: Regular rate and rhythm without murmurs gallops or rubs. LUNGS: Clear to auscultation bilaterally without wheezes, rales or rhonchi. No accessory muscle use. ABDOMEN: Positive bowel sounds x 4.Soft, nontender, without organomegaly. No guarding or rebound tenderness. MUSCULOSKELETAL: No muscle atrophy, erythema, or edema noted. Strength 5/5 throughout. NEURO: Patient was alert and oriented to person place and time. Normal sensation to touch. No focal neurological deficits. Medical Decision & Procedures ER Provider Diagnostic Interpretation: CXR IMPRESSION: No acute cardiopulmonary findings. Electronically signed by: Marck More M.D. 08/26/2017 8:31 PM Dictated Date/Time: 08/26/2017 8:31 PM The status of this report is Signed. Draft = Not yet reviewed or approved by Radiologist. Signed = Reviewed and approved by Radiologist. <AttendingPhy></AttendingPhy> <FamilyPhy>Cee Gonzalez D.O.</FamilyPhy> < PrimaryPhy>Cee Gonzalez D.O.</PrimaryPhy> <UnitNumber>[id number]</ UnitNumber> <VisitNumber>[id number]</VisitNumber> <PatientName>ANETA CRISTOBALHEL Chris< /PatientName> <DateOfBirth>1980</DateOfBirth> <Location>[facility]</Location> < ServiceDate>08/26/17</ServiceDate> <MNE>ESINDI</MNE> <OrderingPhy>Shelly Wang PA-C</OrderingPhy> <OrderingPhyMNE>f rep ord dr rose</OrderingPhyMNE> < DictatingPhyMNE>f rep dict dr rose</DictatingPhyMNE> <CCListMNE>f rep ct mne</ CCListMNE> <AdmittingPhyMNE>f pt admit dr rose</AdmittingPhyMNE> <AttendingPhyMNE >f pt attend dr rose</AttendingPhyMNE> <ConsultingPhyMNE>f pt consult dr rose</ConsultingPhyMNE> <FamilyPhyMNE>f pt fam dr rose</FamilyPhyMNE> <OtherPhyMNE>f pt other dr rose</OtherPhyMNE> < PrimaryPhyMNE>f pt prim care dr rose</PrimaryPhyMNE> <ReferringPhyMNE>f pt referring dr rose</ReferringPhyMNE> Laboratory Results 08/26/17 17:50 Red Blood Count 4.40, Mean Corpuscular Volume 95.2, Mean Corpuscular Hemoglobin 32.3, Mean Corpuscular Hemoglobin Concent 33.9, Mean Platelet Volume 10.3, Neutrophils (%) (Auto) 82.7, Lymphocytes (%) (Auto) 12.3, Monocytes (%) (Auto) 4.6, Eosinophils (%) (Auto) 0.1, Basophils (%) (Auto) 0.1, Neutrophils # (Auto) 7.33, Lymphocytes # (Auto) 1.09, Monocytes # (Auto) 0.41, Eosinophils # (Auto) 0.01, Basophils # (Auto) 0.01 08/26/17 17:50 Test 08/26/17 17:50 08/26/17 18:20 White Blood Count 8.87 K/uL (4.8-10.8) Red Blood Count 4.40 M/uL (4.2-5.4) Hemoglobin 14.2 g/dL (12.0-16.0) Hematocrit 41.9 % (37-47) Mean Corpuscular Volume 95.2 fL (80-100) Mean Corpuscular Hemoglobin 32.3 pg (25-34) Mean Corpuscular Hemoglobin Concent 33.9 g/dl (32-36) Platelet Count 230 K/uL (130-400) Mean Platelet Volume 10.3 fL (7.4-10.4) Neutrophils (%) (Auto) 82.7 % Lymphocytes (%) (Auto) 12.3 % Monocytes (%) (Auto) 4.6 % Eosinophils (%) (Auto) 0.1 % Basophils (%) (Auto) 0.1 % Neutrophils # (Auto) 7.33 K/uL (1.4-6.5) Lymphocytes # (Auto) 1.09 K/uL (1.2-3.4) Monocytes # (Auto) 0.41 K/uL (0.11-0.59) Eosinophils # (Auto) 0.01 K/uL (0-0.5) Basophils # (Auto) 0.01 K/uL (0-0.2) RDW Standard Deviation 43.6 fL (36.4-46.3) RDW Coefficient of Variation 12.5 % (11.5-14.5) Immature Granulocyte % (Auto) 0.2 % Immature Granulocyte # (Auto) 0.02 K/uL (0.00-0.02) D-Dimer < 190 ug/L FEU (0-500) Anion Gap 7.0 mmol/L (3-11) Est Creatinine Clear Calc Drug Dose 111.0 ml/min Estimated GFR () 117.0 Estimated GFR (Non- 100.9 BUN/Creatinine Ratio 27.8 (10-20) Calcium Level 8.9 mg/dl (8.5-10.1) Total Bilirubin 0.3 mg/dl (0.2-1) Aspartate Amino Transf (AST/SGOT) 12 U/L (15-37) Alanine Aminotransferase (ALT/SGPT) 17 U/L (12-78) Alkaline Phosphatase 50 U/L (45-117) Troponin I < 0.015 ng/ml (0-0.045) Total Protein 7.2 gm/dl (6.4-8.2) Albumin 3.8 gm/dl (3.4-5.0) Globulin 3.4 gm/dl (2.5-4.0) Albumin/Globulin Ratio 1.1 (0.9-2) Thyroid Stimulating Hormone (TSH) 1.010 uIu/ml (0.300-4.500) Chemistry Specimen Hemolysis Influenza Type A (RT-PCR) Neg for Influ A (NEG) Influenza Type B (RT-PCR) Neg for Influ B (NEG) Urine Color YELLOW Urine Appearance CLOUDY (CLEAR) Urine pH 5.0 (4.5-7.5) Urine Specific [place] 1.040 (1.000-1.030) Urine Protein NEG (NEG) Urine Glucose (UA) NEG (NEG) Urine Ketones TRACE (NEG) Urine Occult Blood NEG (NEG) Urine Nitrite NEG (NEG) Urine Bilirubin NEG (NEG) Urine Urobilinogen NEG (NEG) Urine Leukocyte Esterase TRACE (NEG) Urine WBC (Auto) 5-10 /hpf (0-5) Urine RBC (Auto) 0-4 /hpf (0-4) Urine Hyaline Casts (Auto) 1-5 /lpf (0-5) Urine Epithelial Cells (Auto) >30 /lpf (0-5) Urine Bacteria (Auto) NEG (NEG) Urine Crystals CALCIUM OXALATE (NONE Urine Test NEG (NEG) Medications Administered Medications (Trade) Dose Ordered Sig/Lamar Route Start Time Stop Time Status Last Admin Dose Admin Sodium Chloride 1,000 ml @ 999 mls/hr Q1H1M ONCE IV 08/26/17 17:45 08/26/17 18:45 DC 08/26/17 18:46 999 MLS/HR Acetaminophen (Tylenol Tab) 1,000 mg NOW STAT PO 08/26/17 17:35 08/26/17 17:38 DC 08/26/17 18:45 1,000 MG Ketorolac Tromethamine (Toradol Inj) 30 mg NOW STAT IV 08/26/17 17:35 08/26/17 17:38 DC 18 18:45 30 MG Ondansetron HCl (Zofran Inj) 4 mg NOW STAT IV 08/26/17 17:35 08/26/17 17:38 DC 08/26/17 18:45 4 MG Ondansetron HCl (ZOFRAN ODT 4MG Home Pack) 1 homepack UD ONCE PO 08/26/17 21:00 08/26/17 21:01 DC 08/26/17 21:21 1 HOMEPACK Sodium Chloride 500 ml @ 999 mls/hr Q31M STAT IV 08/26/17 20:50 08/26/17 21:20 DC 08/26/17 20:56 999 MLS/HR ECG Per My Interpretation Indication: chest pain Rate (beats per minute): 80 Rhythm: normal sinus ED Course Patient was seen and examined Vital signs including blood pressure were reviewed medications list was verified with patient Labs were obtained, and a saline lock was established The patient was medicated with Toradol, Tylenol, Zofran and hydrated with 1 L of normal saline The patient was reevaluated and feeling better. We discussed her workup at length. She voiced understanding. The patient was given an additional 500 mL in normal saline. The case was discussed with my supervising physician who is in agreement with my plan She was given a home pack a Zofran She was comfortable being discharged home I reviewed discharge instructions the patient. They voiced understanding and had no further questions. Medical Decision Differential diagnosis: Bronchitis, pneumonia, influenza, other viral syndrome, pulmonary embolus, cardiac arrhythmia, coronary ischemia, pneumothorax This patient is a 36-year-old female that presents to the emergency room with flulike symptoms and chest pressure/shortness of breath. On exam, she was mildly acutely ill in appearance. Her workup reveals a negative influenza. Chest x-ray is negative for pneumonia. There is no leukocytosis. Her troponin is negative. EKG shows normal sinus rhythm with no signs of ischemia or infarction. I also checked a d-dimer, because the patient has a family history of DVT. This was also negative. A pulmonary embolus is highly unlikely. I believe she likely has a viral illness and was mildly dehydrated from nausea. She was volume resuscitated in the emergency department. She had good symptomatic relief with the medication received. She is now tolerating a diet. I believe she is stable to be discharged home. She will be given a short course of Zofran and continue to take Tylenol and Motrin as needed for pain or fever. I do believe some of the patient's symptoms are related to side effects from the steroids. She was instructed to stop the steroids as she does not have any significant wheezing on exam. She has been taking 50 mg for the last 3 days. I do not think that she needs a taper. The patient was comfortable with this plan. She will follow up closely with her primary care physician, and agrees to return for any worsening symptoms This chart was completed in part utilizing [employer] Voice Recognition software. Attempts were made to minimize the grammatical errors, random word insertions, pronoun errors and incomplete sentences. Any formal questions or concerns about the content, text or information contained within the body of this dictation should be directly addressed to the provider for clarification. Medication Reconcilliation Current Medication List: was personally reviewed by me Blood Pressure Screening Patient's blood pressure: Normal blood pressure Impression Primary Impression: Influenza-like symptoms Departure Information Dispostion Home / Self-Care Condition GOOD Prescriptions Ondasetron Odt (ZOFRAN ODT) 4 Mg Tab 4 MG SL Q6H for Nausea, #20 TAB Prov: Shelly Wang PA-C 08/26/17 Referrals Cee Gonzalez D.O. (PCP) Patient Instructions [facility] Additional Instructions You had been evaluated in the emergency department for flulike symptoms and chest pressure. X-rays were negative for pneumonia. An influenza swab was also negative. This is likely a viral illness. Please take Zofran 1 tab under the tongue every 6 hours as needed for nausea. Try to stay well hydrated and increase fluids over the next several days. Get plenty of rest. Ibuprofen 800 mg and/or Tylenol 1000 mg every 8 hours for pain and fever relief You may also alternate these medications for more effective pain relief: Ibuprofen --4 HRS--> Tylenol --4 HRS--> ibuprofen --4 HRS--> Tylenol .... Please follow-up with your primary care physician early next week for recheck. Please do not hesitate to return to the emergency department with any new, worsening or concerning symptoms It was a pleasure participating in your care tonight Work Instructions Return To Work: 2 days
[2017-08-26 18:18] LABS: BASO % 0.1 %; BASO ABS # 0.01 K/uL (0-0.2); EOS % 0.1 %; EOS ABS # 0.01 K/uL (0-0.5); HEMATOCRIT 41.9 % (37-47); HEMOGLOBIN 14.2 g/dL (12.0-16.0); IG# 0.02 K/uL (0.00-0.02); LYMPH % 12.3 %; LYMPH ABS # 1.09 K/uL (1.2-3.4); MEAN CELL VOLUME 95.2 fL (80-100); MEAN CORPUSCULAR HEMOGLOBIN 32.3 pg (25-34); MEAN CORPUSCULAR HGB CONC 33.9 g/dl (32-36); MEAN PLATELET VOLUME 10.3 fL (7.4-10.4); MONO % 4.6 %; MONO ABS # 0.41 K/uL (0.11-0.59); NEUT % 82.7 %; NEUT ABS # 7.33 K/uL (1.4-6.5); PLATELET COUNT 230 K/uL (130-400); RED CELL DISTRIBUTION WIDTH CV 12.5 % (11.5-14.5); RED CELL DISTRIBUTION WIDTH SD 43.6 fL (36.4-46.3); WHITE BLOOD COUNT 8.87 K/uL (4.8-10.8)
[2017-08-26 18:43] LABS: ALBUMIN 3.8 gm/dl (3.4-5.0); ALT/SGPT 17 U/L (12-78); BLOOD UREA NITROGEN 21 mg/dl (7-18); CALCIUM 8.9 mg/dl (8.5-10.1); CARBON DIOXIDE 27 mmol/L (21-32); CREATININE 0.76 mg/dl (0.60-1.20); GLUCOSE 112 mg/dl (70-99)
[2017-08-26 19:05] LABS: INFLUENZA A PCR Neg for Influ A (NEG); INFLUENZA B PCR Neg for Influ B (NEG)
[2017-08-26 19:23] LABS: POTASSIUM 4.4 mmol/L (3.5-5.1)
[2017-08-26 19:26] LABS: ALKALINE PHOSPHATASE 50 U/L (45-117); SODIUM 142 mmol/L (136-145); TOTAL PROTEIN 7.2 gm/dl (6.4-8.2)
[2017-08-26 19:27] LABS: AST/SGOT 12 U/L (15-37)
--- NOTE | 2017-08-26 20:32 | DIAGNOSTIC IMAGING REPORT ---
CHEST 2 VIEWS ROUTINE CLINICAL HISTORY: SOB CP cough COMPARISON STUDY: Chest radiograph April 23, 2017. FINDINGS: Lung volumes are normal. Lungs are clear. No pneumothorax or pleural effusion is noted. Cardiac size is normal. Mediastinal contours are normal. IMPRESSION: No acute cardiopulmonary findings. Electronically signed by: Marck More M.D. 08/26/2017 8:31 PM Dictated Date/Time: 08/26/2017 8:31 PM
[2017-08-26] MEDS ORDERED: SODIUM CHLORIDE 0.9% 500ML 500 ML IV STA (20:50)
[2017-08-26 20:57] VITALS: TEMP 36.6
[2017-08-26] MEDS ORDERED: ONDANSETRON HOME PACK 4MG OD TAB PO ONE (21:00)
[2017-08-26] MEDS ORDERED: ONDA4TAB10 SL (21:37)
[2017-08-26 21:43] VITALS: BP 117/69; PULSE 75; O2SAT 96
== END 2017-08-26 21:44 | disposition home or self-care (01) ==
LOC: C.EDB 16:55 → C.EDC 21:44
DX: R07.89 Other chest pain (principal); R06.02 Shortness of breath; I10 Essential (primary) hypertension; F31.9 Bipolar disorder, unspecified; F17.200 Nicotine dependence, unspecified, uncomplicated; Z87.442 Personal history of urinary calculi; Z87.440 Personal history of urinary (tract) infections; Z90.89 Acquired absence of other organs; Z98.818 Other dental procedure status; Z98.890 Other specified postprocedural states; Z82.49 Family history of ischemic heart disease and other diseases of the circulatory system; Z79.899 Other long term (current) drug therapy

== ENCOUNTER 2019-01-15 13:44 | Observation (INO) ==
[2019-01-15] MEDS ORDERED: SODIUM CHLORIDE 0.9% 1000ML 1,000 ML IV ONE (14:57)
[2019-01-15] MEDS ORDERED: ONDANSETRON INJ 2 MG/ML 2 ML VIAL IV STA (14:57)
[2019-01-15] MEDS: HYDROmorphone INJ 0.5 MG/0.5 ML SYR IV PRN ×4 (15:20→18:28)
[2019-01-15 15:25] LABS: Basophils # (auto) 0.01 K/uL (0-0.2); Basophils % (auto) 0.1 %; Eosinophils % (auto) 1.4 %; Hematocrit (blood only) 38.3 % (37-47); Hemoglobin 13.1 g/dL (12.0-16.0); Immature Granulocytes # (auto) 0.02 K/uL (0.00-0.02); Immature Granulocytes % (auto) 0.3 %; Lymphocytes # (auto) 2.23 K/uL (1.2-3.4); Mean Corpuscular Hgb Conc 34.2 g/dL (32-36); Mean Corpuscular Volume 94.6 fL (80-100); Mean Platelet Volume 10.1 fL (7.4-10.4); Monocytes # (auto) 0.45 K/uL (0.11-0.59); Monocytes % (auto) 6.3 %; Neutrophils # (auto) 4.39 K/uL (1.4-6.5); Neutrophils % (auto) 60.9 %; Platelet Count 224 K/uL (130-400); RDW Coefficient of Variation 12.8 % (11.5-14.5); RDW Standard Deviation 43.7 fL (36.4-46.3); Red Blood Count 4.05 M/uL (4.2-5.4)
[2019-01-15 15:41] LABS: Albumin Level 3.4 gm/dl (3.4-5.0); Appearance Urine Clear (Clear); BUN Creatinine Ratio 15.7 (10-20); Bacteria Urine Automated Negative (Negative); Bilirubin Urine Negative (Negative); Blood Urine 2+ (Negative); Calcium 9.5 mg/dl (8.5-10.1); Cast Urine Automated 0 /lpf (0-5); Color Urine Yellow; Creatinine Clr Calc Pharmacy 134.9 ml/min; Est GFR (African American) 129.2; Est GFR (Non-African American) 111.5; Glucose Urine UA Negative (Negative); Ketones Urine Negative (Negative); Leukocyte Esterase Urine 1+ (Negative); Nitrite Urine Negative (Negative); Potassium 3.8 mmol/L (3.5-5.1); Protein Urine Negative (Negative); Specific Gravity Urine 1.011 (1.000-1.030); Urobilinogen Urine Negative (Negative)
[2019-01-15 15:43] LABS: Bilirubin,Total 0.3 mg/dl (0.2-1); Globulin 3.5 gm/dl (2.5-4.0); Total Protein 6.9 gm/dl (6.4-8.2)
--- NOTE | 2019-01-15 16:56 | Ultrasound Report ---
PELVIC ULTRASOUND CLINICAL HISTORY: s/p D and E, fever COMPARISON STUDY: Pelvic ultrasound January 13, 2018. CT of the abdomen and pelvis October 28, 2018. TECHNIQUE: Transabdominal sonography of the pelvis was performed. Transvaginal imaging was deferred in this patient given recent procedure. FINDINGS: Uterus measures 9.5 x 5 x 7.4 cm. The endometrium is thickened, measuring 1.9 cm in thickne ss. Endometrial hypervascularity is noted, most evident within the uterine fundus. This is suboptimal ly assessed given the lack of transvaginal imaging. The ovaries were not visualized. No adnexal mass was identified. No free fluid was noted. IMPRESSION: 1. Thickened endometrium with hypervascularity, most evident within the fundus. Although suboptimally assessed given the lack of transvaginal imaging, the findings favor retained products of conception. Endometritis could appear similar. 2. Nonvisualization of the ovaries. No adnexal masses. No free fluid. Electronically signed by: Marck More M.D. 01/15/2019 4:55 PM
[2019-01-15] MEDS ORDERED: SILVER NITR/POTASSIUM NITRATE APPLICATOR ONE (18:59)
--- NOTE | 2019-01-15 19:13 | Anesthesiology Consultation ---
Date of Service January 15, 2019 The patient states that Dilaudid is the only IV narcotic that she tolerates. Assessment & Plan (1) Encounter for pre-operative examination: Chart Review Chart Review: Acceptable Risk for Surgery and Patient NOT seen in Pre Admission Testing Consults Requested none History Surgery Operation Date: 01/15/19 19:00 Proposed Procedures p Dilatation and Evacuation - Dorian Wallis MD Height/Weight Height: 5 ft 7 in Weight: 95.2 kg Allergies Allergy/AdvReac Type Severity Reaction Status Date / Time cefuroxime Allergy Intermediate HIVES Verified 01/15/19 15:35 Cipro Allergy Intermediate HIVES Unverified 01/13/18 11:19 ciprofloxacin Allergy Intermediate HIVES Verified 01/15/19 15:35 clavulanic acid Allergy Intermediate HIVES Verified 01/15/19 15:35 doxycycline Allergy Intermediate HIVES Verified 01/15/19 15:35 morphine Allergy Intermediate ITCHING Verified 01/15/19 15:35 fentanyl AdvReac Severe HALLUCINATE Verified 01/15/19 15:35 oxycodone AdvReac Severe HALLUCINATE Verified 01/15/19 15:35 amitriptyline AdvReac Intermediate "HEAD Verified 01/15/19 15:35 FEELS LIKE IT IS GOING TO BLOW UP" sumatriptan AdvReac Intermediate "HEAD Verified 01/15/19 15:35 FEELS LIKE IT IS GOING TO BLOW UP" codeine AdvReac Mild VOMIT Verified 01/11/19 05:59 Medications Home Medications Medication Instructions Recorded Confirmed Last Taken PNV cmb#95-ferrous fumarate-FA 1 tab PO DAILY 01/02/19 01/15/19 01/09/19 22:00 [] levothyroxine 50 mcg PO QAM 01/02/19 01/15/19 01/11/19 04:30 [id number]-[id number]-GB 4 drp OTB TID 01/02/19 01/15/19 01/10/19 22:00 ibuprofen 600 mg PO Q6H PRN 01/15/19 01/15/19 Unknown venlafaxine [Effexor XR] 37.5 mg PO DAILY 01/15/19 01/15/19 Unknown Active Medications Generic Name Dose Route Start Last Admin Trade Name Freq PRN Reason Stop Dose Admin Hydromorphone HCl 0.5 mg 01/15/19 14:57 01/15/19 18:28 Dilaudid IV 01/29/19 14:56 0.5 mg Q15M PRN Administration Pain NPO Date Last Intake of Fluids: 01/14/19 Time Last Intake of Fluids: 15:00 Date Last Intake of Solids: 01/15/19 Time Last Intake of Solids: 13:00 Past Medical History Medical History Anxiety Chronic constipation IBS (irritable bowel syndrome) Kidney stones Major depression DISORDER Missed Post traumatic stress disorder HX Redundant colon SIGMOID Past Family History Family History Family/Other Family hx of colon cancer Mother Family hx colonic polyps Other Family history non-contributory Past Surgical History Surgical History Cyst of left kidney REMOVED Family history of reaction to anesthesia MOTHER/BROTHER NAUSEA/VOMITTING H/O removal of cyst History of appendectomy History of colonoscopy 06/12/18= MAC SEDATION History of colposcopy History of cystoscopy STONE EXTRACTION History of dilatation and curettage History of esophagogastroduodenoscopy (EGD) History of laparoscopy 10/30/18 [facility]. MAC 3, ETT 7.0, DL x 1, atraumatic. Grade view II with anterior cricoid pressure. History of lithotripsy History of tooth extraction Hx of tonsillectomy Social History Smoking Status: Never smoker tobacco type: cigarettes Smoking cigarettes per day: ONLY SMOKES OCCASIONALLY "NOT DAILY" Hx Alcohol Use: Yes Alcohol type: beer alcohol intake frequency: a few times a month Hx Substance Use: Yes substance use type: marijuana Substance Use Type Other:: ADVISED Physical Exam Vital Signs Last Vital Signs Temp 36.7 C 01/15/19 18:41 Pulse 76 01/15/19 18:41 Resp 18 01/15/19 18:41 BP 105/76 01/15/19 18:41 Pulse Ox 98 01/15/19 18:41 Testing Laboratory Results 01/15/19 15:15 01/15/19 15:15 Urine Color Yellow 01/15/19 15:15 Urine Appearance Clear (Clear) 01/15/19 15:15 Urine pH 7.0 (4.5-7.5) 01/15/19 15:15 Ur Specific [place] 1.011 (1.000-1.030) 01/15/19 15:15 Urine Protein Negative (Negative) 01/15/19 15:15 Urine Glucose (UA) Negative (Negative) 01/15/19 15:15 Urine Ketones Negative (Negative) 01/15/19 15:15 Urine Nitrite Negative (Negative) 01/15/19 15:15 Ur Leukocyte Esterase 1+ (Negative) H 01/15/19 15:15 Urine WBC (Auto) 1-5 /hpf (0-5) 01/15/19 15:15 Urine RBC (Auto) 5-10 /hpf (0-4) H 01/15/19 15:15 U Hyaline Cast (Auto) 0 /lpf (0-5) 01/15/19 15:15 U Epithel Cells (Auto) 10-20 /lpf (0-5) H 01/15/19 15:15 Urine Bacteria (Auto) Negative (Negative) 01/15/19 15:15
[2019-01-15] MEDS ORDERED: ePHEDrine sulfate 50 MG/ML AMP IV PRN (19:16)
[2019-01-15] MEDS ORDERED: ONDANSETRON INJ 2 MG/ML 2 ML VIAL IV PRN ×2 (19:16→22:30)
[2019-01-15] MEDS ORDERED: PHENYLEPHRINE 100MCG/ML 5ML SYR IV PRN (19:16)
[2019-01-15] MEDS ORDERED: ATROPINE SULFATE 0.1 MG/ML 10ML SYR IV PRN (19:16)
[2019-01-15] MEDS ORDERED: HYDROmorphone INJ 2 MG/ML SYR/VIAL ONE (19:21)
[2019-01-15] MEDS ORDERED: MIDAZOLAM HCL 1 MG/ML 2ML VIAL ONE (19:21)
[2019-01-15] MEDS ORDERED: DEXAMETHASONE SOD INJ 4 MG/ML VIAL ONE (19:57)
[2019-01-15] MEDS ORDERED: PROPOFOL IV EMULSION 10 MG/ML 20 ML VIAL IV ONE (19:57)
[2019-01-15] MEDS ORDERED: LIDOCAINE HCL 2% 2 ML VIAL/AMP(20MG/ML) INFIL ONE (19:57)
[2019-01-15] MEDS ORDERED: ONDANSETRON INJ 2 MG/ML 2 ML VIAL ONE (19:57)
[2019-01-15] MEDS ORDERED: OXYTOCIN 10 UNITS/ML VIAL ONE (20:12)
[2019-01-15] MEDS ORDERED: KETOROLAC 30 MG/ML VIAL IV ONE (20:24)
[2019-01-15] MEDS ORDERED: KETOROLAC 30 MG/ML VIAL ONE (20:25)
--- NOTE | 2019-01-15 20:32 | History and Physical Report ---
DATE OF ADMISSION: 01/15/2019 REASON FOR ADMISSION: Vaginal bleeding and abdominal pain. HISTORY OF PRESENT ILLNESS: The patient is a 38-year-old female 3, para 0-2-1-2, who presents with vaginal bleeding and abdominal pain today. She is status post D and E done on 01/11/2019 for missed , done by myself. Products of conception were present on pathology. She states that she has been having abdominal pain and passage of quarter size clots. On exam today, her abdomen is soft. There is a little bit of tenderness, no rebound or guarding. Pelvic exam revealed minimal amounts of bleeding. The os is closed. No tissue noted. An ultrasound today shows a thickened endometrium on a transabdominal ultrasound. Uterus is 9.5 x 5 x 7.4 cm and the endometrial thickening is measuring 1.9 cm. REVIEW OF SYSTEMS: Negative. FAMILY HISTORY: Noncontributory. ALLERGIES: INCLUDE CEFUROXIME, CIPRO, CIPROFLOXACIN, CLAVULANIC ACID, DOXYCYCLINE, MORPHINE, FENTANYL, OXYCODONE, AMITRIPTYLINE, SUMATRIPTAN, AND CODEINE. MEDICATIONS: Ibuprofen. SOCIAL HISTORY: Past smoker, denies smoking presently. No alcohol or drug use. LABORATORIES: White blood cell count 7.2, hemoglobin 13.1, hematocrit 38.3. Chemistries within normal limits. ASSESSMENT: Probable retained products of conception, doubt endometritis. PLAN: D and E. The patient is given an option for medical management but refused.
[2019-01-15] MEDS ORDERED: HYDROmorphone INJ 1 MG/ML SYRINGE ONE (20:33)
[2019-01-15] MEDS: HYDROmorphone INJ 1 MG/ML SYRINGE IV PRN ×2 (20:34→20:39)
--- NOTE | 2019-01-15 21:16 | Anesthesiology Progress Note ---
Date of Service January 15, 2019 Anesthesia Post Procedure Vital Signs Vital Signs: Temp Pulse Pulse Pulse Resp BP BP 01/15/19 21:10 79 12 117/66 01/15/19 21:00 36.5 C 70 20 108/67 01/15/19 20:50 65 11 L 118/70 01/15/19 20:40 63 12 109/73 01/15/19 20:30 73 13 114/88 01/15/19 20:24 36.2 C L 74 16 108/75 01/15/19 19:20 36.4 C L 92 H 16 127/67 01/15/19 18:41 36.7 C 76 18 105/76 01/15/19 17:50 66 18 115/70 01/15/19 16:10 64 18 100/64 01/15/19 13:49 36.7 C 76 16 127/74 Pulse Ox 01/15/19 21:10 98 01/15/19 21:00 99 01/15/19 20:50 97 01/15/19 20:40 98 01/15/19 20:30 98 01/15/19 20:24 93 01/15/19 19:20 96 01/15/19 18:41 98 01/15/19 17:50 98 01/15/19 16:10 98 01/15/19 13:49 97 Pain Intensity Abdomen: Pain Intensity: 4 Transfer of Care Handoff Completed per policy Notes Mental Status: alert / awake / arousable Patient Amnestic to Procedure: Yes Nausea / Vomiting: adequately controlled Pain: adequately controlled Airway Patency, RR, SpO2: stable & adequate BP & HR: stable & adequate Hydration State: stable & adequate Anesthetic Complications: no major complications apparent and Pt Satisfied with anesthetic care
[2019-01-15] MEDS ORDERED: ACETAMINOPHEN 1,000 MG/100 ML VIAL IV PRN (22:25)
[2019-01-15] MEDS ORDERED: KETOROLAC 30 MG/ML VIAL IV PRN (22:28)
--- NOTE | 2019-01-15 22:42 | Emergency Department Note ---
Entered by Parris Kelly acting as a scribe for Bob Crisostomo MD ED Provider Note CHIEF COMPLAINT: Vaginal bleeding. HISTORY OF PRESENT ILLNESS: The patient is a 38 year old female who presents to the Emergency Room with co mplaints of constant vaginal bleeding. Per the ED note, the patient had a DNE of a missed on January [address] Colon. She was diagnosed with a missed in the [facility] office. She was RH negative. The patient received Rhogam. Procedure with no complications was noted. The patient states that her abdominal pain has worsened since the surgery. She reports that the pain is located more i n her lower abdomen and at a 9/10. She states that she has been experiencing vaginal bleeding and clots. She reports that the clots are quarter size. She states that she has dizziness. The patient states that Ibuprofen did not alleviate her pain. She denies being on any blood thinners. She states that she has a history of IBS. Pt denies LOC, headache, fevers, chills, diaphoresis, visual changes, neck pain, chest pain, breathing difficulties, nausea, vomiting, back pain, melena, hematochezia, urinary symptoms, numbness, weakness, lymphadenopathy, rash, or other complaints. REVIEW OF SYSTEMS: See HPI for pertinent positives and negatives. A total of ten systems were reviewed and were otherwise negative. PMHx/PSHx: procedure and IBS SOCIAL HISTORY: Patient lives at home. PHYSICAL EXAM: GENERAL: Awake, alert, uncomfortable-appearing, in mild distress HENT: Normocephalic, atraumatic. Oropharynx unremarkable. EYES: PERRL. Normal conjunctiva. Sclera non-icteric. NECK: Inspection normal. Non-tender. Supple. No nuchal rigidity. FROM. No masses. RESPIRATORY: Clear to auscultation. No wheezes. No rales. Normal respiratory effort. CARDIAC: Normal rate. Normal rhythm. No murmurs. No rubs. Extremities warm and well perfused. Pulses equal. No JVD. GI: Soft, non-distended. Mild diffuse but moderate bilateral lower abdominal tenderness to palpation. No rebound or guarding. No masses. RECTAL: Deferred. MUSCULOSKELETAL: Atraumatic. Chest examination reveals no tenderness. There is no CVA tenderness to palpation. No joint edema. LOWER EXTREMITIES: Calves are equal size bilaterally and non-tender. No edema. No discoloration. NEURO: Normal sensorium. No sensory or motor deficits noted. SKIN: No rash or jaundice noted. EMERGENCY DEPARTMENT COURSE: 1456: Past medical records reviewed. The patient was evaluated in room A4B, and a complete history and physical examination were performed. 1508: I discussed the patient's case with the patient's [facility] OT, Dr. Colon- [facility], he agreed with everything and wanted a call after the ultrasound was conducted on the patient. 170: I reevaluated and updated the patient on her results. 170: I updated Dr. Colon on the patient's ultrasounds results, he will come and evaluate the patient. 182: Dr. Colon will further evaluate the patient. MEDICAL DECISION MAKING: Prior records/ancillary studies reviewed. The patient had recent surgery for a missed . Triage Nursing notes reviewed and agree them. The patient's history was concerning for vaginal bleeding and abdominal pain. Differential diagnosis: Etiologies such as retained products, endometritis, dysfunction uterine bleeding, bleeding dyscrasia, trauma, infection, as well as others were entertained. Physical examination: As above. ER treatment provided: Monitoring IV Dilaudid x2 IV Zofran On reassessment the patient felt better. Diagnostic interpretation by me: The labs revealed CBC, coagulation studies, and chemistries were unremarkableImaging studies: Consultation: A consultation was placed with the brilliandeer lopper physician, Dr. Syed Wallis. The case was discussed and diagnostics were reviewed. Patient was evaluated in the emergency department for further management. IMPRESSION: Retained product of conception, vaginal bleeding, lower abdominal pain, and pelvic pain. PLAN: Admitted. The scribe's documentation has been prepared under my direction and personally reviewed by me in its entirety. I confirm that the note above accurately reflects all work, treatment, procedures, and medical decision making performed by me. Impression & Plan Retained products of conception, Vaginal bleeding, Lower abdominal pain, Pelvic pain Past Med/Surg History Medical History Anxiety Chronic constipation IBS (irritable bowel syndrome) Kidney stones Major depression DISORDER Missed Post traumatic stress disorder HX Redundant colon SIGMOID Surgical History Cyst of left kidney REMOVED Family history of reaction to anesthesia MOTHER/BROTHER NAUSEA/VOMITTING H/O removal of cyst History of appendectomy History of colonoscopy 06/12/18= MAC SEDATION History of colposcopy History of cystoscopy STONE EXTRACTION History of dilatation and curettage History of esophagogastroduodenoscopy (EGD) History of laparoscopy 10/30/18 [facility]. MAC 3, ETT 7.0, DL x 1, atraumatic. Grade view II with anterior cricoid pressure. History of lithotripsy History of tooth extraction Hx of tonsillectomy Family History Family/Other Family hx of colon cancer Mother Family hx colonic polyps Other Family history non-contributory Social History Preferred Language: Israeli Communication Ability: Effective Beliefs That Will Affect Care: None Current Living Situation: Family Feels Safe at Home: Yes Smoking Status: Never smoker Tobacco Type: cigarettes Cigarettes Per Day: ONLY SMOKES OCCASIONALLY "NOT DAILY" Second Hand Exposure: No Hx Alcohol Use: Yes Alcohol type: beer Hx Substance Use: Yes substance use type: marijuana Substance Use Type Other:: ADVISED Results & Data Vital Signs Vital Signs - 24 hr 01/15/19 13:49 01/15/19 16:10 01/15/19 17:50 Temperature 36.7 C Temperature Source Oral Sepsis Recent Fever Within 48 Hours No Sepsis New/Unexplained Change in Mental Status No Sepsis Action Taken by Nursing No Action Required Pulse Rate 76 Pulse Rate [Apical] Pulse Rate [Right Finger] 64 66 Pulse Rhythm [Apical] Pulse Rhythm [Right Finger] Respiratory Rate 16 18 18 Respiratory Effort / Characteristics Respiratory Depth Respiratory Pattern Blood Pressure 127/74 Blood Pressure [Right Arm] 100/64 115/70 Blood Pressure Mean 91 Blood Pressure Mean [Right Arm] 76 85 Blood Pressure Position [Right Arm] Pulse Oximetry 97 98 98 Oxygen Delivery Method Oxygen Flow Rate 01/15/19 18:41 01/15/19 19:20 01/15/19 20:24 Temperature 36.7 C 36.4 C L 36.2 C L Temperature Source Oral Oral Temporal Artery Scan Sepsis Recent Fever Within 48 Hours Sepsis New/Unexplained Change in Mental Status Sepsis Action Taken by Nursing Pulse Rate Pulse Rate [Apical] 74 Pulse Rate [Right Finger] 76 92 H Pulse Rhythm [Apical] Regular Pulse Rhythm [Right Finger] Regular Respiratory Rate 18 16 16 Respiratory Effort / Characteristics Non-Labored Spontaneous Non-Labored Spontaneous Respiratory Depth Normal Normal Respiratory Pattern Regular Regular Blood Pressure Blood Pressure [Right Arm] 105/76 127/67 108/75 Blood Pressure Mean Blood Pressure Mean [Right Arm] 85 87 86 Blood Pressure Position [Right Arm] Sitting Semi-fowlers Pulse Oximetry 98 96 93 Oxygen Delivery Method Room Air Room Air Oxygen Flow Rate 01/15/19 20:30 Temperature Temperature Source Sepsis Recent Fever Within 48 Hours Sepsis New/Unexplained Change in Mental Status Sepsis Action Taken by Nursing Pulse Rate Pulse Rate [Apical] 73 Pulse Rate [Right Finger] Pulse Rhythm [Apical] Regular Pulse Rhythm [Right Finger] Respiratory Rate 13 Respiratory Effort / Characteristics Non-Labored Spontaneous Respiratory Depth Normal Respiratory Pattern Regular Blood Pressure Blood Pressure [Right Arm] 114/88 Blood Pressure Mean Blood Pressure Mean [Right Arm] 96 Blood Pressure Position [Right Arm] Semi-fowlers Pulse Oximetry 98 Oxygen Delivery Method Nasal Cannula Oxygen Flow Rate 2 Home Medications Current Medication List: was personally reviewed by me Laboratory Data Attestation: I reviewed the patient's lab results. Result diagrams: 01/15/19 15:15 01/15/19 15:15 Lab Results 01/15/19 01/15/19 01/15/19 Range/Units 15:15 15:15 15:15 WBC 7.20 (4.8-10.8) K/uL RBC 4.05 L (4.2-5.4) M/uL Hgb 13.1 (12.0-16.0) g/dL Hct 38.3 (37-47) % MCV 94.6 (80-100) fL MCH 32.3 (25-34) pg MCHC 34.2 (32-36) g/dL RDW Std Deviation 43.7 (36.4-46.3) fL RDW Coeff of Lauren 12.8 (11.5-14.5) % Plt Count 224 (130-400) K/uL MPV 10.1 (7.4-10.4) fL Immature Gran % (Auto) 0.3 % Neut % (Auto) 60.9 % Lymph % (Auto) 31.0 % [place] % (Auto) 6.3 % Eos % (Auto) 1.4 % Baso % (Auto) 0.1 % Immature Gran # (Auto) 0.02 (0.00-0.02) K/uL Neut # (Auto) 4.39 (1.4-6.5) K/uL Lymph # (Auto) 2.23 (1.2-3.4) K/uL [place] # (Auto) 0.45 (0.11-0.59) K/uL Eos # (Auto) 0.10 (0-0.5) K/uL Baso # (Auto) 0.01 (0-0.2) K/uL Sodium 141 (136-145) mmol/L Potassium 3.8 (3.5-5.1) mmol/L Chloride 105 (98-107) mmol/L Carbon Dioxide 30 (21-32) mmol/L Anion Gap 6.0 (3-11) BUN 11 (7-18) mg/dl Creatinine 0.67 (0.6-1.2) mg/dl Est Cr Clr Drug Dosing 134.9 ml/min Est GFR ( Amer) 129.2 Est GFR (Non-Af Amer) 111.5 BUN/Creatinine Ratio 15.7 (10-20) Glucose 82 (70-99) mg/dl Calcium 9.5 (8.5-10.1) mg/dl Total Bilirubin 0.3 (0.2-1) mg/dl AST 22 (15-37) U/L ALT 36 (12-78) U/L Alkaline Phosphatase 67 (45-117) U/L Total Protein 6.9 (6.4-8.2) gm/dl Albumin 3.4 (3.4-5.0) gm/dl Globulin 3.5 (2.5-4.0) gm/dl Albumin/Globulin Ratio 1.0 (0.9-2) Lipase 193 (73-393) U/L Urine Color Yellow Urine Appearance Clear (Clear) Urine pH 7.0 (4.5-7.5) Ur Specific [place] 1.011 (1.000-1.030) Urine Protein Negative (Negative) Urine Glucose (UA) Negative (Negative) Urine Ketones Negative (Negative) Urine Blood 2+ H (Negative) Urine Nitrite Negative (Negative) Urine Bilirubin Negative (Negative) Urine Urobilinogen Negative (Negative) Ur Leukocyte Esterase 1+ H (Negative) Urine WBC (Auto) 1-5 (0-5) /hpf Urine RBC (Auto) 5-10 H (0-4) /hpf U Hyaline Cast (Auto) 0 (0-5) /lpf U Epithel Cells (Auto) 10-20 H (0-5) /lpf Urine Bacteria (Auto) Negative (Negative) Administered Medications Hydromorphone HCl (Dilaudid) 0.5 mg IV Q15M PRN PRN Reason: Pain Stop: 01/29/19 14:56 Last Admin: 01/15/19 18:28 Dose: 0.5 mg Documented by: [id number] Admin: 01/15/19 17:43 Dose: 0.5 mg Documented by: [id number] Admin: 01/15/19 17:05 Dose: 0.5 mg Documented by: [id number] Admin: 01/15/19 15:20 Dose: 0.5 mg Documented by: [id number] Discontinued Medications Hydromorphone HCl (Dilaudid) 0.25 mg IV Q5M PRN PRN Reason: PACU Use Only-Pain Stop: 01/16/19 00:16 Last Admin: 01/15/19 20:39 Dose: 0.25 mg Documented by: [id number] Admin: 01/15/19 20:34 Dose: 0.25 mg Documented by: [id number] Sodium Chloride (Nss 1000ml) 1,000 mls @ 999 mls/hr IV .Q1H1M ONE Stop: 01/15/19 15:57 Last Infusion: 01/15/19 16:20 Dose: 0 mls/hr Documented by: [id number] Admin: 01/15/19 15:20 Dose: 999 mls/hr Documented by: [id number] Ketorolac Tromethamine (Toradol) 30 mg IV NOW ONE Stop: 01/15/19 20:25 Last Admin: 01/15/19 20:32 Dose: 30 mg Documented by: [id number] Ondansetron HCl (Zofran) 4 mg IV NOW STA Stop: 01/15/19 14:58 Last Admin: 01/15/19 15:20 Dose: 4 mg Documented by: [id number] Imaging Data Radiologist's Impression: Radiology results as stated below per my review and the radiologist's interpretation: PELVIC ULTRASOUND CLINICAL HISTORY: s/p D and E, fever COMPARISON STUDY: Pelvic ultrasound January 13, 2018. CT of the abdomen and pelvis October 28, 2018. TECHNIQUE: Transabdominal sonography of the pelvis was performed. Transvaginal imaging was deferred in this patient given recent procedure. FINDINGS: Uterus measures 9.5 x 5 x 7.4 cm. The endometrium is thickened, measuring 1.9 cm in thickness. Endometrial hypervascularity is noted, most evident within the uterine fundus. This is suboptimally assessed given the lack of transvaginal imaging. The ovaries were not visualized. No adnexal mass was identified. No free fluid was noted. IMPRESSION: 1. Thickened endometrium with hypervascularity, most evident within the fundus. Although suboptimally assessed given the lack of transvaginal imaging, the findings favor retained products of conception. Endometritis could appear similar. 2. Nonvisualization of the ovaries. No adnexal masses. No free fluid. Electronically signed by: Marck More M.D. 01/15/2019 4:55 PM Blood Pressure Blood Pressure Findings: Normal blood pressure Discharge Plan Visit Data *Final* Discharge Date/Time: 01/15/19 19:01 Chief Complaint: Vaginal Bleeding Stated Complaint: D&E ON 01/11,EXCESSIVE BLEEDING,CLOTS,PAIN ED Provider: Bob Crisostomo Discharge Problem: Retained products of conception, Vaginal bleeding, Lower abdominal pain, Pelvic pain Patient Disposition: Admitted As Inpatient Discharge Instructions Interventions: ED Discharge Assessment Last Done: 01/15/19 19:01 The scribe's documentation has been prepared under my direction and personally reviewed by me in its entirety. I confirm that the note above accurately reflect s all work, treatment, procedures, and medical decision making performed by me.
--- NOTE | 2019-01-16 01:16 | Operative Report ---
DATE OF OPERATION: 01/15/2019 PREOPERATIVE DIAGNOSIS: Retained products of conception. POSTOPERATIVE DIAGNOSIS: Retained products of conception. PROCEDURE: D and E under ultrasound guidance. SURGEON: Dorian Wallis MD PRESS TENDER SMOKE SIGNAL: None. ANESTHESIA: General. CLINICAL HISTORY: The patient is a 38-year-old female, para 0-2-1-2 who presents to the ER after having bleeding and abdominal pain for a day or so. She had undergone a D and E on 01/11/2019 for missed . She comes back today to the ER complaining of vaginal bleeding and pain. Ultrasound revealed possible presence of thickened endometrium with possible retained products. The patient was consented for D and E. She was given informed consent and a timeout was called prior to the start of the procedure. No antibiotics were given. DESCRIPTION OF PROCEDURE: Under satisfactory general anesthesia, the patient was prepped and draped in usual sterile fashion. A red rubber catheter was then used to empty the bladder of clear urine. Exam under anesthesia revealed the uterus to be approximately 8-week size. A weighted speculum was placed in the posterior vault of the vagina. The cervix was then dilated and sounded to approximately 8 cm. A #8 curved curette was then introduced and under ultrasound guidance products of conception were suctioned out. The ultrasound confirmed that the uterus was empty. No active bleeding was noted at the end of the procedure. A sharp endometrial curette was then used curetting out minimal amounts of tissue. Pitocin was started in the IV. No active bleeding was noted. All remaining instruments were then removed. The final sponge, needle, and instrument count were found to be correct. The patient was then placed upon a stretcher and she was taken to recovery room in stable condition. She will stay overnight due to not having a ride. I attest to the content of the Intraoperative Record and any orders documented therein. Any exception s are noted below.
[2019-01-16] MEDS: IBUPROFEN 600 MG TAB PO PRN ×2 (01:34→08:48)
--- NOTE | 2019-01-16 08:22 | Obstetrical Progress Note ---
Date of Service January 16, 2019 Physical Exam Physical Exam: abdomen soft and non tender vaginal bleeding scant no calf tenderness hgb 13.1 no calf tenderness Results & Data Vital Signs (Past 12 Hours) Vital Signs Temp Pulse Pulse Resp BP BP Pulse Ox 01/16/19 07:30 36.9 C 65 16 102/60 97 01/16/19 03:20 36.7 C 64 18 108/63 96 01/15/19 23:30 36.4 C L 66 18 104/68 98 01/15/19 22:15 36.5 C 68 18 110/65 98 01/15/19 21:45 36.5 C 88 20 117/74 97 01/15/19 21:30 77 18 108/65 97 01/15/19 21:15 70 12 106/71 96 01/15/19 21:10 79 12 117/66 98 01/15/19 21:00 36.5 C 70 20 108/67 99 01/15/19 20:50 65 11 L 118/70 97 01/15/19 20:40 63 12 109/73 98 01/15/19 20:30 73 13 114/88 98 01/15/19 20:24 36.2 C L 74 16 108/75 93 Pulse Ox 01/16/19 07:30 01/16/19 03:20 01/15/19 23:30 01/15/19 22:15 01/15/19 21:45 97 01/15/19 21:30 01/15/19 21:15 01/15/19 21:10 01/15/19 21:00 01/15/19 20:50 01/15/19 20:40 01/15/19 20:30 01/15/19 20:24
--- NOTE | 2019-01-30 06:44 | Discharge Summary ---
REASON FOR ADMISSION: Retained products of conception. HISTORY OF PRESENT ILLNESS AND HOSPITAL COURSE: The patient is a 38-year-old female para 0-2-1-2 who presents to the ER after having bleeding and abdominal pain for 1 day. She had a D and E on 01/11/2019 for a missed . She comes back today bleeding. Ultrasound revealed possible presence of thickened endometrium, possible retained products. The D and E was done under ultrasound guidance. The patient was discharged home the following day in stable condition with no bleeding. Her hemoglobin was 13.1 and she was stable. Homegoing instructions were given. Condition on discharge is stable. Regular diet on discharge. Follow up in the office in 2 weeks for postop.
== END 2019-01-16 11:40 | disposition home or self-care (01) ==
LOC: ED 13:44 → OR 19:01 → 4S2 19:01

== ENCOUNTER 2020-05-14 07:45 | Inpatient (IN) ==
[2020-05-14] MEDS ORDERED: OXYTOCIN 30 UNITS/500 ML BAG IV PRN ×3 (09:13→17:12)
--- NOTE | 2020-05-14 09:38 | History & Physical Report ---
Date of Service May 14, 2020 Assessment & Plan (1) Elective induction of labor planned: (2) Gestational [-induced] hypertension without significant proteinuria, complicating childbirth: Patient is a 39-year-old -0-1-2 at 38 weeks of gestation, scheduled for induction of labor for gestational hypertension, gestational diabetes on insulin and other medical problems, see HPI Vital signs stable with borderline elevated blood pressures and no severe symptoms heart rate reassuring GBS negative Plan to admit monitor labs and induction with oxytocin infusion and AROM when able All questions were answered (3) Gestational diabetes mellitus (GDM): Admission and Anticipated Discharge Date Admission Date: May 14, 2020 History of Present Illness Primary Care Provider: NO PCP Patient is a 39-year-old -0-1-2 at 38 weeks of gestation who is being admitted for induction of labor for gestational hypertension. Patient has been having recurring headaches for the last 2 weeks and elevated blood pressures at the office. No protein in her urine and normal liver enzymes. She feels well today with no complaints. She denies contractions, leakage of fluid, vaginal bleeding, headaches, change in her vision, nausea vomiting, chest pain, shortness of breath, fever chills and cold symptoms. Her has been complicated by 1 gestational diabetes, on insulin, 10 units daily at night, controlled well with this dose. 2 hypothyroidism, on Levoxyl 50 mcg a day 3 bipolar disorder 4 depression anxiety, PTSD, on Wellbutrin and Lamictal since the beginning of 5 advanced maternal age, low risk per first trimester screening with panorama testing 6 Class II Obesity 7 hepatitis C antibody positive, Viral load negative. Patient was not aware of this until this . Recommended to follow-up with hepatology. 8 history of delivery, 36 and 35 weeks, 22 and 13 years ago respectively 9 history of kidney stones 10 history of irritable bowel syndrome Allergies Allergy/AdvReac Type Severity Reaction Status Date / Time cefuroxime Allergy Intermediate HIVES Verified 05/14/20 08:57 Cipro Allergy Intermediate HIVES Unverified 01/13/18 11:19 ciprofloxacin Allergy Intermediate HIVES Verified 05/14/20 08:57 clavulanic acid Allergy Intermediate HIVES Verified 05/14/20 08:57 doxycycline Allergy Intermediate HIVES Verified 05/14/20 08:57 morphine Allergy Intermediate ITCHING Verified 05/14/20 08:57 fentanyl AdvReac Severe HALLUCINATE Verified 05/14/20 08:57 oxycodone AdvReac Severe HALLUCINATE Verified 05/14/20 08:57 amitriptyline AdvReac Intermediate "HEAD Verified 05/14/20 08:57 FEELS LIKE IT IS GOING TO BLOW UP" sumatriptan AdvReac Intermediate "HEAD Verified 05/14/20 08:57 FEELS LIKE IT IS GOING TO BLOW UP" codeine AdvReac Mild VOMIT Verified 05/14/20 08:57 Home Medications Home Medications Medication Instructions Recorded Confirmed Type levothyroxine 50 mcg PO QAM 01/02/19 05/14/20 History lamotrigine 100 mg PO DAILY 04/03/19 05/14/20 History bupropion HCl 150 mg PO QAM 05/11/20 05/14/20 History docusate sodium [Colace] 50 mg PO BID 05/11/20 05/14/20 History insulin glargine [Basaglar KwikPen 10 unit SUBCUT PM 05/11/20 05/14/20 History U-100 Insulin] alhpqglj-[id number]-[id number] 1 tab PO DAILY 05/11/20 05/14/20 History [] Patient History Medical History (Updated 05/14/20 @ 09:36 by Carroll Inman MD) Anxiety Chronic constipation IBS (irritable bowel syndrome) Kidney stones Major depression DISORDER Missed Post traumatic stress disorder HX Redundant colon SIGMOID Surgical History Cyst of left kidney REMOVED Family history of reaction to anesthesia MOTHER/BROTHER NAUSEA/VOMITTING H/O removal of cyst History of appendectomy History of colonoscopy 06/12/18= MAC SEDATION History of colposcopy History of cystoscopy STONE EXTRACTION History of dilatation and curettage History of esophagogastroduodenoscopy (EGD) History of laparoscopy 10/30/18 [facility]. MAC 3, ETT 7.0, DL x 1, atraumatic. Grade view II with anterior cricoid pressure. History of lithotripsy History of tooth extraction Hx of tonsillectomy Family History Family/Other Family hx of colon cancer Mother Family hx colonic polyps Other Family history non-contributory Social History Smoking Status: Former smoker Cigarettes Per Day: ONLY SMOKES OCCASIONALLY "NOT DAILY"; Second Hand Exposure: No; Hx Alcohol Use: No Hx Substance Use: Yes Last Used Substance Other:: MARIJUANA USE IN THE PAST (ADVISED) Substance Use Type Other:: ADVISED Preferred Language: Montserratian Communication Ability: Effective Bow Maker Gift Wrapping Required: No Beliefs That Will Affect Care: None marital status: Single Current Living Situation: Family Current Living Situation Comment: lives with daughter Other Information That Helps Us Care for You: No Feels Safe at Home: Yes Safety Concerns: Feels Safe At This Time Assistive Devices: None INSTRUCTION ASSISTANT PRINCIPAL History No h/o HSV, h/o chlamydia 6 years ago, negative cx during this Review of Systems All systems reviewed & are unremarkable except as noted in HPI & below Physical Exam Constitutional: WD/WN, vitals as above well developed and well nourished Gastrointestinal (Abdomen): normal bowel sounds, soft, nontender, no hepatosplenomegaly (gravid, madie 7lb) Genitourinary: normal external appearance Manual OB Exam: + cervical dilation 3 cm, + cervical effacement 70% and + station -2 OB Exam Monitor Tracing: + external uterine monitor used and + category I Results & Data ([facility]) Vital Signs (Past 12 Hours) Vital Signs Temp Pulse Resp BP 05/14/20 08:14 78 144/82 H 05/14/20 07:55 37.0 C 78 20 144/82 H
[2020-05-14 09:54] LABS: Albumin Level 2.6 gm/dl (3.4-5.0); BUN Creatinine Ratio 25.7 (10-20); Calcium 9.2 mg/dl (8.5-10.1); Creatinine Clr Calc Pharmacy 173.3 ml/min; Est GFR (African American) 133.8; Est GFR (Non-African American) 115.5; Potassium 3.6 mmol/L (3.5-5.1)
[2020-05-14 09:57] LABS: Albumin Globulin Ratio 0.6 (0.9-2); Bilirubin,Total 0.1 mg/dl (0.2-1); Globulin 4.3 gm/dl (2.5-4.0); Total Protein 6.9 gm/dl (6.4-8.2)
[2020-05-14] MEDS: LACTATED RINGER'S 1,000 ML IV PRN ×2 (10:05→16:12)
[2020-05-14 11:09] LABS: Amphetamines+Metham, Urine Neg (Neg); Barbiturates, Urine Neg (Neg); Benzodiazepine, Urine Neg (Neg); Cocaine, Urine Neg (Neg); MDMA (Ecstacy), Urine Pos (Neg); Methadone, Urine Neg (Neg); Opiate, Urine Neg (Neg); Phencyclidine, Urine Neg (Neg)
[2020-05-14 12:46] LABS: Basophils # (auto) 0.01 K/uL (0-0.2); Basophils % (auto) 0.1 %; Eosinophils # (auto) 0.04 K/uL (0-0.5); Eosinophils % (auto) 0.5 %; Hematocrit (blood only) 38.7 % (37-47); Hemoglobin 12.7 g/dL (12.0-16.0); Immature Granulocytes # (auto) 0.02 K/uL (0.00-0.02); Immature Granulocytes % (auto) 0.3 %; Lymphocytes # (auto) 1.25 K/uL (1.2-3.4); Lymphocytes % (auto) 16.4 %; Mean Corpuscular Hemoglobin 30.2 pg (25-34); Mean Corpuscular Hgb Conc 32.8 g/dL (32-36); Mean Corpuscular Volume 92.1 fL (80-100); Mean Platelet Volume 11.1 fL (7.4-10.4); Monocytes # (auto) 0.51 K/uL (0.11-0.59); Monocytes % (auto) 6.7 %; Platelet Count 211 K/uL (130-400); RDW Coefficient of Variation 14.3 % (11.5-14.5); RDW Standard Deviation 47.5 fL (36.4-46.3); White Blood Count 7.63 K/uL (4.8-10.8)
[2020-05-14] MEDS ORDERED: BUTORPHANOL TARTRATE 1 MG/ML VIAL IV PRN (14:47)
--- NOTE | 2020-05-14 15:19 | Obstetrical Progress Note ---
Date of Service May 14, 2020 Assessment & Plan Admission and Anticipated Discharge Date Admission Date: May 14, 2020 Subjective Patient is reevaluated She feels better, just received Stadol for pain and plans to take a nap No LOF/VB +FM FHR had been categ I, now with decreased variability s/p Stadol, no decels [place] ctxs q 1-3 min, pitocin is at 10miu/min Continue to monitor Patient plans to have epidural next Results & Data ([facility]) Vital Signs (Past 12 Hours) Vital Signs Temp Pulse Resp BP 05/14/20 14:05 74 156/85 H 05/14/20 13:20 73 150/78 H 05/14/20 13:12 77 170/95 H 05/14/20 11:56 36.9 C 76 20 144/84 H 05/14/20 11:08 75 158/86 H 05/14/20 08:14 78 144/82 H 05/14/20 07:55 37.0 C 78 20 144/82 H
[2020-05-14] MEDS ORDERED: SODIUM CHLORIDE 0.9% INJ 10 ML VIAL ONE (16:13)
[2020-05-14] MEDS ORDERED: ePHEDrine sulfate 50 MG/ML AMP ONE (16:13)
[2020-05-14] MEDS ORDERED: BUPIVACAINE 0.25% 30 ML VIAL ONE (16:14)
[2020-05-14] MEDS ORDERED: fentaNYL citrate 100 MCG/2 ML VIAL ONE (16:14)
[2020-05-14] MEDS ORDERED: fentaNYL 2MCG/ML ROPIVACAINE 1.25MG/ML 100 ML BAG EPI ONE (16:14)
[2020-05-14] MEDS ORDERED: LIDOCAINE HCL 1% 20 ML VIAL ONE (16:51)
[2020-05-14] MEDS ORDERED: bisacodyL 10 MG SUPP PR PRN (17:12)
[2020-05-14] MEDS ORDERED: BENZOCAINE 20% AER SPR 82.5 GM CAN EXT PRN (17:12)
[2020-05-14] MEDS ORDERED: SUPERCREAM 0.870% 15 GM JAR EXT PRN (17:12)
[2020-05-14] MEDS ORDERED: HYDROCORTISONE ACETATE 25 MG SUPP PR PRN (17:12)
--- NOTE | 2020-05-14 17:26 | Delivery Summary ---
DATE OF OPERATION: 05/14/2020 TIME: 1646 p.m. DETAILS OF DELIVERY: The patient was found to be fully dilated and desired to push. She pushed only once and delivered the head without difficulty and shoulders came out right the head and baby was handed to the mother where mouth and nose were suctioned. Cord was clamped x2 and cut at 1 minute delay and then vagina was checked for lacerations. There was a small first-degree laceration at the posterior fourchette. Rest of the vagina and labia was intact. The patient was given 20 mL of 1% lidocaine for local anesthesia. She has not had epidural. After that, this was repaired with 2-0 Vicryl in a running locked fashion. Excellent hemostasis was achieved. Then placenta was found to be in the vagina, delivered spontaneous as intact and complete. Uterus was explored, found to be empty. Lower segment was cleared of all clots and debris. Fundus was firm. EBL was 200 mL. Mom and baby tolerated the procedure well. Sponge, lap, needle count was correct x2. Baby was a viable female , Apgars 9/9, weight is 2802 gr. No complications happened and I was present during the whole procedure. I attest to the content of the Intraoperative Record and any orders documented therein. Any exceptions are noted below. ROMED
[2020-05-14] MEDS ORDERED: LABETALOL HCL 100 MG TAB PO STA (19:28)
[2020-05-14] MEDS ORDERED: DOCUSATE SODIUM 100 MG CAP PO ONE (19:51)
[2020-05-14] MEDS: ACETAMINOPHEN 325 MG TAB PO PRN (19:52)
[2020-05-14] MEDS: DOCUSATE SODIUM 100 MG CAP PO SCH (22:44)
[2020-05-14] MEDS: LABETALOL HCL 100 MG TAB PO SCH (22:45)
[2020-05-15 06:22] LABS: Hematocrit (blood only) 34.2 % (37-47); Hemoglobin 11.3 g/dL (12.0-16.0); Mean Corpuscular Hemoglobin 29.9 pg (25-34); Mean Corpuscular Volume 90.5 fL (80-100); Mean Platelet Volume 10.6 fL (7.4-10.4); Platelet Count 155 K/uL (130-400); RDW Coefficient of Variation 14.4 % (11.5-14.5); RDW Standard Deviation 47.3 fL (36.4-46.3); Red Blood Count 3.78 M/uL (4.2-5.4); White Blood Count 8.72 K/uL (4.8-10.8)
[2020-05-15] MEDS: LEVOTHYROXINE SODIUM 50 MCG TABLET PO SCH (06:25)
[2020-05-15] MEDS: ACETAMINOPHEN 325 MG TAB PO PRN ×3 (06:27→17:59)
--- NOTE | 2020-05-15 08:21 | Obstetrical Progress Note ---
Date of Service May 15, 2020 Assessment & Plan Admission and Anticipated Discharge Date Admission Date: May 14, 2020 Physical Exam Physical Exam: abdomen soft and non tender no calf tenderness vaginal bleeding scant hgb 11.3 ambulating well Results & Data ([facility]) Vital Signs (Past 12 Hours) Vital Signs Temp Pulse Resp BP 05/15/20 03:30 36.4 C L 82 18 148/84 H 05/14/20 23:30 36.7 C 94 H 18 130/77
[2020-05-15] MEDS: lamoTRIgine 100 MG TAB PO SCH (08:37)
[2020-05-15] MEDS: LABETALOL HCL 100 MG TAB PO SCH ×2 (08:37→20:27)
[2020-05-15] MEDS: buPROPion XL 150 MG TABCR PO SCH (08:37)
[2020-05-15] MEDS: PRENATAL VITAMIN 1 TAB PO SCH (08:37)
[2020-05-15] MEDS: DOCUSATE SODIUM 100 MG CAP PO SCH ×2 (08:37→20:28)
[2020-05-15] MEDS: FERROUS SULFATE 325 MG TAB PO SCH (08:37)
[2020-05-15] MEDS ORDERED: MEASLES, MUMPS & RUBELLA VIRUS VIAL SQ ONE (09:00)
[2020-05-15] MEDS ORDERED: DIPHTHERIA/TETANUS/PERTUSSIS 0.5 ML SYR/VIAL IM ONE (09:00)
[2020-05-15] MEDS: IBUPROFEN 600 MG TAB PO PRN ×2 (09:09→14:47)
[2020-05-15] MEDS ORDERED: bisacodyL 5 MG TABEC PO SCH (20:00)
[2020-05-16] MEDS: LEVOTHYROXINE SODIUM 50 MCG TABLET PO SCH (06:07)
[2020-05-16 06:32] LABS: Hematocrit (blood only) 34.6 % (37-47); Hemoglobin 11.2 g/dL (12.0-16.0)
[2020-05-16] MEDS: DOCUSATE SODIUM 100 MG CAP PO SCH (09:09)
[2020-05-16] MEDS: PRENATAL VITAMIN 1 TAB PO SCH (09:09)
[2020-05-16] MEDS: lamoTRIgine 100 MG TAB PO SCH (09:10)
[2020-05-16] MEDS: LABETALOL HCL 100 MG TAB PO SCH (09:10)
[2020-05-16] MEDS: FERROUS SULFATE 325 MG TAB PO SCH (09:10)
[2020-05-16] MEDS: buPROPion XL 150 MG TABCR PO SCH (09:10)
--- NOTE | 2020-05-16 09:57 | Obstetrical Progress Note ---
Date of Service May 16, 2020 Assessment & Plan (1) Normal course: Pt doing well No complaints On labetalol for BP disch home with instructions Subjective Ambulation: ambulating normally Voiding: no voiding problems Passing Gas:: Yes Diet Tolerance:: regular diet Lochia:: Small Feeding Type:: breast feeding Review of Systems All systems reviewed & are unremarkable except as noted in HPI & below Physical Exam Constitutional WD/WN, vitals as above well developed and well nourished Eyes PERRL, conjunctivae normal, anicteric sclerae Neck trachea midline, no thyromegaly Respiratory normal respiratory effort, lungs clear to auscultation Auscultation: no crackles, no rales and no wheezes Cardiovascular RRR, no murmur, no edema Gastrointestinal (Abdomen) normal bowel sounds, soft, nontender, no hepatosplenomegaly Uterus is below umbilicus Musculoskeletal no cyanosis or clubbing, extremities motor strength 5/5 Skin no rashes, warm and dry Neurologic patellar DTR's 2+ bilat, sensation intact Psychiatric A+Ox3, euthymic affect Genitourinary normal external appearance Results & Data ([facility]) Vital Signs (Past 12 Hours) Vital Signs Temp Pulse Resp BP 05/16/20 08:00 36.5 C 76 20 151/90 H 05/16/20 00:15 36.9 C 68 20 126/72
[2020-05-17 08:21] LABS: MDA negative; MDEA negative; MDMA (Ecstasy) Urine, Confirm negative
== END 2020-05-16 12:40 | disposition home or self-care (01) | DRG 806 ==
LOC: 4S1 07:45 → 4S2 19:39